=== PATIENT | male | born 1980 | race Caucasian/White ===

== ENCOUNTER 2017-10-29 15:24 | Inpatient (IN) | payer MEDICAID, MEDICARE, OTHER ==
[2017-10-29] VITALS (9 sets, daily range): BP systolic 114–131; BP diastolic 61–82
[~2017-10-29] VITALS: Ht 175.3 cm; Wt 75.3 kg
[2017-10-29] MEDS ORDERED: ONDANSETRON 4 MG/2 ML (SDV) Z0FRAN IVP ONE (16:00)
[2017-10-29 16:09] LABS: ABG BASE EXCESS -16.9 MMOL/L (-2.5-2.5); ABG OXYGEN SATURATION 99 % (94-100); ABG PO2 114 MMHG (79-93); ABG TCO2 9.3 MMOL/L (21.0-31.0)
[2017-10-29] MEDS: NS IV 1000 ML 1,000 ML IV SCH ×2 (16:10→16:46)
[2017-10-29 16:13] LABS: ABG PCO2 19 MMHG (35-45); ABG PH 7.29 (7.37-7.43); ALLENS TEST POSITIVE; INSPIRED O2 ROOM AIR; PATIENT TEMP 98.1; VENTILATOR NO
--- NOTE | 2017-10-29 16:13 | ED General ---
General Chief Complaint: Glucose Problems Stated Complaint: HIGH BLOOD SUGAR Source of Information: Patient Exam Limitations: No Limitations History of Present Illness Date Seen by Provider: Oct 29, 2017 Time Seen by Provider: 15:50 Initial Comments Patient is a 37-year-old male who presents to the emergency room with reports of elevated blood sugars. He was sent over from [facility] for possible DKA. He reports that 2 days ago he ran out of his insulin and this morning he started vomiting. He had an appointment with [facility] and they're the ones that sent him over to the emergency room. They tried to send him by EMS but the patient refused and came pov. He also reports smoking methamphetamines 3 days ago. Timing/Duration: 2-3 Days Associated Systoms: Nausea/Vomiting Allergies and Home Medications Allergies Coded Allergies: No Known Drug Allergies (Unverified , 10/29/17) Home Medications Insulin Aspart 100 Unit/1 Ml Susp, 10 UNIT SQ AC, (Reported) Insulin Aspart 100 Unit/1 Ml Susp, 0 SQ PRN, (Reported) SSI takes 2 units for every 8 units above 160 Insulin Glargine,Hum.rec.anlog 100 Unit/1 Ml Vial, 30 UNIT SQ BID, (Reported) Pregabalin 300 Mg Capsule, 350 MG PO TID, (Reported) Patient Home Medication List Home Medication List Reviewed: Yes Review of Systems Review of Systems Constitutional: see HPI; No chills, No fever; malaise, weakness Gastrointestinal: no symptoms reported, nausea, vomiting Hematologic/Lymphatic: See HPI, Other (hyperglycemia) All Other Systems Reviewed Negative Unless Noted: Yes Past Dxgeriu-Xsvdmi-Nyniuw Hx Past Med/Social Hx: Reviewed Nursing Past Med/Soc Hx Patient Social History Recent Foreign Travel: No Contact w/Someone Who Travel: No Family Medical History Reviewed Nursing Family Hx Physical Exam Vital Signs Vital Signs - First Documented 10/29/17 15:44 Temp 98.9 Pulse 102 Resp 28 B/P (MAP) 128/72 (90) Pulse Ox 97 O2 Delivery Room Air Capillary Refill : Height, Weight, BMI Height: '" Weight: lbs. oz. kg; BMI Method: General Appearance: WD/WN, Mild Distress HEENT: PERRL/EOMI, TMs Normal, Normal ENT Inspection, Pharynx Normal Respiratory: Chest Non Tender, Lungs Clear, Normal Breath Sounds, No Accessory Muscle Use, No Respiratory Distress Cardiovascular: Regular Rate, Rhythm, No Edema, No Gallop, No JVD, No Murmur, Normal Peripheral Pulses, Tachycardia Gastrointestinal: Normal Bowel Sounds, No Organomegaly, No Pulsatile Mass, Non Tender, Soft Neurologic/Psychiatric: Alert, Oriented x3, Normal Mood/Affect Skin: Normal Color, Warm/Dry, Tattoos/Piercings Progress/Results/Core Measures Suspected Sepsis SIRS Temperature: Pulse: Respiratory Rate: Laboratory Tests 10/29/17 16:08: White Blood Count 5.6 Blood Pressure / Mean: Laboratory Tests 10/29/17 16:08: Platelet Count 449H, Total Bilirubin 0.9 10/29/17 18:23: Total Bilirubin 0.5, Creatinine 1.09 10/29/17 19:56: Creatinine 1.03 10/29/17 21:57: Creatinine 0.92 Results/Orders Lab Results Laboratory Tests Test 10/29/17 16:00 10/29/17 16:08 10/29/17 16:14 10/29/17 17:12 Range/Units Blood Gas Puncture Site RIGHT RADIAL Blood Gas Patient Temperature 98.1 Arterial Blood pH 7.29 *L 7.37-7.43 Arterial Blood Partial Pressure CO2 19 *L 35-45 MMHG Arterial Blood Partial Pressure O2 114 H 79-93 MMHG Arterial Blood HCO3 9 *L 23-27 MMOL/L Arterial Blood Total CO2 9.3 L 21.0-31.0 MMOL/L Arterial Blood Oxygen Saturation 99 94-100 % Arterial Blood Base Excess -16.9 L -2.5-2.5 MMOL/L [place] Test POSITIVE Blood Gas Ventilator Setting NO Blood Gas Inspired Oxygen ROOM AIR White Blood Count 5.6 4.3-11.0 10^3/uL Red Blood Count 4.58 4.35-5.85 10^6/uL Hemoglobin 14.7 13.3-17.7 G/DL Hematocrit 40 40-54 % Mean Corpuscular Volume 88 80-99 FL Mean Corpuscular Hemoglobin 32 25-34 PG Mean Corpuscular Hemoglobin Concent 37 H 32-36 G/DL Red Cell Distribution Width 12.4 10.0-14.5 % Platelet Count 449 H 130-400 10^3/uL Mean Platelet Volume 9.4 7.4-10.4 FL Neutrophils (%) (Auto) 67 42-75 % Lymphocytes (%) (Auto) 22 12-44 % Monocytes (%) (Auto) 8 0-12 % Eosinophils (%) (Auto) 1 0-10 % Basophils (%) (Auto) 1 0-10 % Neutrophils # (Auto) 3.7 1.8-7.8 X 10^3 Lymphocytes # (Auto) 1.2 1.0-4.0 X 10^3 Monocytes # (Auto) 0.5 0.0-1.0 X 10^3 Eosinophils # (Auto) 0.1 0.0-0.3 10^3/uL Basophils # (Auto) 0.1 0.0-0.1 10^3/uL Sodium Level 128 L 135-145 MMOL/L Potassium Level 5.6 H 3.6-5.0 MMOL/L Chloride Level 92 L 98-107 MMOL/L Carbon Dioxide Level 8 *L 21-32 MMOL/L Anion Gap 28 H 5-14 MMOL/L Blood Urea Nitrogen 29 H 7-18 MG/DL Creatinine 1.41 H 0.60-1.30 MG/DL Estimat Glomerular Filtration Rate 56 BUN/Creatinine Ratio 21 Glucose Level 786 *H 70-105 MG/DL Calcium Level 9.8 8.5-10.1 MG/DL Corrected Calcium 9.5 8.5-10.1 MG/DL Magnesium Level 2.6 H 1.8-2.4 MG/DL Total Bilirubin 0.9 0.1-1.0 MG/DL Aspartate Amino Transf (AST/SGOT) 29 5-34 U/L Alanine Aminotransferase (ALT/SGPT) 28 0-55 U/L Alkaline Phosphatase 178 H 40-136 U/L Total Protein 7.7 6.4-8.2 GM/DL Albumin 4.4 3.2-4.5 GM/DL Amylase Level 21 L 25-125 U/L Lipase 13 8-78 U/L Urine Color YELLOW Urine Clarity CLEAR Urine pH 5 5-9 Urine Specific [place] 1.015 L 1.016-1.022 Urine Protein 2+ H NEGATIVE Urine Glucose (UA) 4+ H NEGATIVE Urine Ketones 4+ H NEGATIVE Urine Nitrite NEGATIVE NEGATIVE Urine Bilirubin NEGATIVE NEGATIVE Urine Urobilinogen NORMAL NORMAL MG/DL Urine Leukocyte Esterase NEGATIVE NEGATIVE Urine RBC (Auto) 2+ H NEGATIVE Urine RBC 2-5 H /HPF Urine WBC NONE /HPF Urine Squamous Epithelial Cells NONE /HPF Urine Crystals NONE /LPF Urine Bacteria NEGATIVE /HPF Urine Casts NONE /LPF Urine Mucus NEGATIVE /LPF Urine Culture Indicated NO Glucometer > 600 *H 561 *H 70-110 MG/DL Test 10/29/17 18:11 10/29/17 18:23 10/29/17 19:07 10/29/17 19:56 Range/Units Glucometer 401 *H 366 H 70-110 MG/DL Sodium Level 132 L 132 L 135-145 MMOL/L Potassium Level 4.5 4.2 3.6-5.0 MMOL/L Chloride Level 103 102 98-107 MMOL/L Carbon Dioxide Level 11 L 14 L 21-32 MMOL/L Anion Gap 18 H 16 H 5-14 MMOL/L Blood Urea Nitrogen 27 H 24 H 7-18 MG/DL Creatinine 1.09 1.03 0.60-1.30 MG/DL Estimat Glomerular Filtration Rate > 60 > 60 BUN/Creatinine Ratio 25 23 Glucose Level 445 *H 310 H 70-105 MG/DL Calcium Level 8.9 8.4 L 8.5-10.1 MG/DL Corrected Calcium 8.9 8.5-10.1 MG/DL Total Bilirubin 0.5 0.1-1.0 MG/DL Aspartate Amino Transf (AST/SGOT) 25 5-34 U/L Alanine Aminotransferase (ALT/SGPT) 25 0-55 U/L Alkaline Phosphatase 161 H 40-136 U/L Total Protein 6.9 6.4-8.2 GM/DL Albumin 4.0 3.2-4.5 GM/DL Test 10/29/17 20:03 10/29/17 21:12 10/29/17 21:57 10/29/17 22:08 Range/Units Glucometer 281 H 203 H 165 H 70-110 MG/DL Sodium Level 133 L 135-145 MMOL/L Potassium Level 4.1 3.6-5.0 MMOL/L Chloride Level 105 98-107 MMOL/L Carbon Dioxide Level 18 L 21-32 MMOL/L Anion Gap 10 5-14 MMOL/L Blood Urea Nitrogen 22 H 7-18 MG/DL Creatinine 0.92 0.60-1.30 MG/DL Estimat Glomerular Filtration Rate > 60 BUN/Creatinine Ratio 24 Glucose Level 182 H 70-105 MG/DL Calcium Level 8.5 8.5-10.1 MG/DL Test 9/14/18 23:08 10/29/17 23:43 10/30/17 00:46 Range/Units Glucometer 127 H 106 101 70-110 MG/DL My Orders Orders - GUANAKO TORRE Comprehensive Metabolic Panel (10/29/17 15:40) Lipase (10/29/17 15:40) Amylase (10/29/17 15:40) Ua Culture If Indicated (10/29/17 15:40) Saline Lock/Iv-Start (10/29/17 15:40) Cbc With Automated Diff (10/29/17 15:40) Magnesium (10/29/17 15:40) Accucheck Stat ONCE (10/29/17 15:40) Ns Iv 1000 Ml (Sodium Chloride 0.9%) (10/29/17 15:45) Ondansetron Injection (Zofran Injectio (10/29/17 16:00) Arterial Blood Gas (10/29/17 16:01) Ns Iv 1000 Ml (Sodium Chloride 0.9%) (10/29/17 16:15) Hemoglobin A1c (10/29/17 16:38) Insulin (Regular) Human (Humulin R (Per (10/29/17 16:45) Medications Given in ED Current Medications Medications Dose Ordered Sig/Lety Route Start Time Stop Time Status Last Admin Dose Admin Insulin Human Regular 10 unit ONCE ONCE IV 10/29/17 16:45 10/29/17 16:46 DC 10/29/17 16:46 10 UNIT Ondansetron HCl 8 mg ONCE ONCE IVP 10/29/17 16:00 10/29/17 16:01 DC 10/29/17 16:10 8 MG Vital Signs/I&O 10/29/17 10/29/17 10/29/17 10/29/17 15:44 16:55 17:30 17:45 Temp 98.9 Pulse 102 112 109 Resp 28 1 18 B/P (MAP) 128/72 (90) 124/61 (82) 120/74 Pulse Ox 97 97 95 100 O2 Delivery Room Air Room Air Room Air Room Air 10/29/17 10/29/17 10/29/17 10/29/17 17:45 18:00 18:20 18:30 Temp 97.6 Pulse 101 101 98 98 Resp 10 18 16 B/P (MAP) 124/78 (93) 130/79 (96) 120/79 (93) 131/79 (96) Pulse Ox 100 100 99 100 O2 Delivery Room Air Room Air Room Air Room Air 10/29/17 10/29/17 10/29/17 10/29/17 19:00 19:00 20:00 21:00 Pulse 95 95 98 102 Resp 16 10 11 B/P (MAP) 126/82 (97) 119/75 (90) 124/72 (89) Pulse Ox 100 100 99 O2 Delivery Room Air Room Air Room Air 10/29/17 22:00 Pulse 97 Resp 24 B/P (MAP) 114/75 (88) Pulse Ox 98 O2 Delivery Room Air 10/30/17 00:00 Intake Total 1000 ml Balance 1000 ml Capillary Refill : Progress Note : Time: 17:12 Progress Note I have seen and evaluated the patient. He is much more calm at this time. Nausea and vomiting is controlled. Insulin and Zofran has been given. His current blood sugar is 561. I spoke to Dr. Everett at this time. She recommends admission to the ICU to her services. Departure Communication (Admissions) Time/Spoke to Admitting Phy: 17:[address] Everett at this time. She recommends admission to the ICU and agrees to accept the patient at this time. Impression Primary Impression: Diabetic keto-acidosis Disposition: ADMITTED INPATIENT Condition: Stable/Unchanged Admissions Decision to Admit Reason: Admit from ER (General) Decision to Admit/Date: Oct 29, 2017 Time/Decision to Admit Time: 17:10 Departure-Patient Inst. Referrals: [facility] (PCP/Family) Primary Care Physician GUANAKO TORRE Oct 29, 2017 16:13
[2017-10-29] MEDS ORDERED: NS IV 1000 ML 1,000 ML IV SCH (16:15)
[2017-10-29 16:17] LABS: BASOPHILS # (AUTO) 0.1 10^3/uL (0.0-0.1); BASOPHILS % (AUTO) 1 % (0-10); EOSINOPHILS # (AUTO) 0.1 10^3/uL (0.0-0.3); EOSINOPHILS % (AUTO) 1 % (0-10); HEMATOCRIT 40 % (40-54); HEMOGLOBIN 14.7 G/DL (13.3-17.7); LYMPHOCYTES # (AUTO) 1.2 X 10^3 (1.0-4.0); LYMPHOCYTES % (AUTO) 22 % (12-44); MEAN CORPUSCULAR HEMOGLOBIN 32 PG (25-34); MEAN CORPUSCULAR HGB CONC 37 G/DL (32-36); MEAN CORPUSCULAR VOLUME 88 FL (80-99); MEAN PLATELET VOLUME 9.4 FL (7.4-10.4); MONOCYTES # (AUTO) 0.5 X 10^3 (0.0-1.0); MONOCYTES % (AUTO) 8 % (0-12); NEUTROPHILS # (AUTO) 3.7 X 10^3 (1.8-7.8); NEUTROPHILS % (AUTO) 67 % (42-75); PLATELET COUNT 449 10^3/uL (130-400); RED BLOOD COUNT 4.58 10^6/uL (4.35-5.85); RED CELL DISTRIBUTION WIDTH 12.4 % (10.0-14.5); WHITE BLOOD COUNT 5.6 10^3/uL (4.3-11.0)
[2017-10-29 16:35] LABS: ALBUMIN 4.4 GM/DL (3.2-4.5); BILIRUBIN,TOTAL 0.9 MG/DL (0.1-1.0); CALCIUM 9.8 MG/DL (8.5-10.1); CREATININE SERUM 1.41 MG/DL (0.60-1.30); POTASSIUM 5.6 MMOL/L (3.6-5.0); TOTAL PROTEIN 7.7 GM/DL (6.4-8.2)
[2017-10-29] MEDS ORDERED: INSULIN (16:38)
[2017-10-29] MEDS ORDERED: inSUlin (REGULAR) HUMAN 1 UNIT/0.01 ML (CHARGE PER UNIT) IV ONE (16:45)
[2017-10-29 16:53] LABS: BILIRUBIN,URINE NEGATIVE (NEGATIVE); CLARITY,URINE CLEAR; COLOR,URINE YELLOW; GLUCOSE, URINE (UA) 4+ (NEGATIVE); KETONES,URINE 4+ (NEGATIVE); LEUKOCYTE ESTERASE ,URINE NEGATIVE (NEGATIVE); NITRITE,URINE NEGATIVE (NEGATIVE); PH,URINE 5 (5-9); PROTEIN,URINE 2+ (NEGATIVE); UROBILINOGEN,URINE NORMAL (NORMAL)
[2017-10-29 17:15] LABS: BACTERIA,URINE NEGATIVE /HPF
[2017-10-29] MEDS ORDERED: NS IV 1000 ML 1,000 ML IV ONE (17:52)
[2017-10-29] MEDS ORDERED: D5 1/2 NS 1000 ML IV SOLUTION 1,000 ML IV SCH (18:00)
[2017-10-29] MEDS ORDERED: inSUlin REGULAR TPN/DRIP ONLY 250 UNITS in NORMAL SALINE 250 ML IV SCH (18:00)
[2017-10-29] MEDS ORDERED: ONDANSETRON 4 MG/2 ML (SDV) Z0FRAN IV PRN (18:00)
[2017-10-29] MEDS: 1/2 NS IV SOLUTION 1,000 ML IV SCH (18:23)
[2017-10-29] MEDS: 1/2 NS W/KCL 20 MEQ/L 1,000 ML IV SCH (18:24)
[2017-10-29] MEDS: D5 1/2 NS W/KCL 20 MEQ/L 1,000 ML IV SCH ×2 (18:24→20:07)
[2017-10-29 18:50] LABS: ALANINE AMINOTRANSFERASE 25 U/L (0-55); ALKALINE PHOSPHATASE 161 U/L (40-136); BILIRUBIN,TOTAL 0.5 MG/DL (0.1-1.0); BUN/CREATININE RATIO 25; CALCIUM 8.9 MG/DL (8.5-10.1); CARBON DIOXIDE 11 MMOL/L (21-32); CHLORIDE 103 MMOL/L (98-107); CREATININE SERUM 1.09 MG/DL (0.60-1.30); GFR ESTIMATED > 60; POTASSIUM 4.5 MMOL/L (3.6-5.0); SODIUM 132 MMOL/L (135-145); TOTAL PROTEIN 6.9 GM/DL (6.4-8.2)
[2017-10-29 18:57] LABS: GLUCOSE 445 MG/DL (70-105)
[2017-10-29] MEDS ORDERED: PREG300C PO (19:58)
[2017-10-29] MEDS ORDERED: INSU100V16 SQ ×2 (19:58)
[2017-10-29] MEDS ORDERED: INSU100V6 SQ (19:58)
[2017-10-29 20:22] LABS: BUN/CREATININE RATIO 23; CALCIUM 8.4 MG/DL (8.5-10.1); CARBON DIOXIDE 14 MMOL/L (21-32); CREATININE SERUM 1.03 MG/DL (0.60-1.30); GFR ESTIMATED > 60; GLUCOSE 310 MG/DL (70-105)
[2017-10-29 20:28] LABS: CHLORIDE 102 MMOL/L (98-107); POTASSIUM 4.2 MMOL/L (3.6-5.0); SODIUM 132 MMOL/L (135-145)
[2017-10-29 22:22] LABS: BUN/CREATININE RATIO 24; CALCIUM 8.5 MG/DL (8.5-10.1); CARBON DIOXIDE 18 MMOL/L (21-32); CHLORIDE 105 MMOL/L (98-107); CREATININE SERUM 0.92 MG/DL (0.60-1.30); GFR ESTIMATED > 60; GLUCOSE 182 MG/DL (70-105); POTASSIUM 4.1 MMOL/L (3.6-5.0); SODIUM 133 MMOL/L (135-145)
[2017-10-29] MEDS ORDERED: DEXTROSE 10% IV SOLUTION 1,000 ML IV ONE (23:43)
[2017-10-30] VITALS (17 sets, daily range): BP systolic 107–134; BP diastolic 65–78
[2017-10-30] MEDS: 1/2 NS IV SOLUTION 1,000 ML IV SCH ×4 (01:52→10:21)
[2017-10-30] MEDS: 1/2 NS W/KCL 20 MEQ/L 1,000 ML IV SCH ×4 (01:52→10:21)
[2017-10-30 02:19] LABS: BUN/CREATININE RATIO 21; CALCIUM 8.3 MG/DL (8.5-10.1); CARBON DIOXIDE 19 MMOL/L (21-32); CHLORIDE 105 MMOL/L (98-107); CREATININE SERUM 0.85 MG/DL (0.60-1.30); GFR ESTIMATED > 60; GLUCOSE 120 MG/DL (70-105); POTASSIUM 3.7 MMOL/L (3.6-5.0); SODIUM 134 MMOL/L (135-145)
[2017-10-30] MEDS: D5 1/2 NS W/KCL 20 MEQ/L 1,000 ML IV SCH ×3 (04:01→10:21)
[2017-10-30 04:05] LABS: BASOPHILS # (AUTO) 0.1 10^3/uL (0.0-0.1); BASOPHILS % (AUTO) 1 % (0-10); EOSINOPHILS # (AUTO) 0.3 10^3/uL (0.0-0.3); EOSINOPHILS % (AUTO) 4 % (0-10); HEMATOCRIT 36 % (40-54); HEMOGLOBIN 12.9 G/DL (13.3-17.7); LYMPHOCYTES # (AUTO) 2.1 X 10^3 (1.0-4.0); LYMPHOCYTES % (AUTO) 33 % (12-44); MEAN CORPUSCULAR HEMOGLOBIN 32 PG (25-34); MEAN CORPUSCULAR HGB CONC 36 G/DL (32-36); MEAN CORPUSCULAR VOLUME 88 FL (80-99); MEAN PLATELET VOLUME 8.7 FL (7.4-10.4); MONOCYTES # (AUTO) 0.6 X 10^3 (0.0-1.0); MONOCYTES % (AUTO) 9 % (0-12); NEUTROPHILS # (AUTO) 3.5 X 10^3 (1.8-7.8); NEUTROPHILS % (AUTO) 53 % (42-75); PLATELET COUNT 415 10^3/uL (130-400); RED BLOOD COUNT 4.07 10^6/uL (4.35-5.85); RED CELL DISTRIBUTION WIDTH 12.8 % (10.0-14.5); WHITE BLOOD COUNT 6.5 10^3/uL (4.3-11.0)
[2017-10-30 04:31] LABS: ALANINE AMINOTRANSFERASE 21 U/L (0-55); ALBUMIN 3.4 GM/DL (3.2-4.5); ALKALINE PHOSPHATASE 132 U/L (40-136); BILIRUBIN,TOTAL 0.4 MG/DL (0.1-1.0); BUN/CREATININE RATIO 20; CALCIUM 8.3 MG/DL (8.5-10.1); CARBON DIOXIDE 17 MMOL/L (21-32); CHLORIDE 103 MMOL/L (98-107); CREATININE SERUM 0.84 MG/DL (0.60-1.30); GFR ESTIMATED > 60; GLUCOSE 190 MG/DL (70-105); POTASSIUM 3.8 MMOL/L (3.6-5.0); SODIUM 131 MMOL/L (135-145); TOTAL PROTEIN 5.8 GM/DL (6.4-8.2)
[2017-10-30 04:54] LABS: MAGNESIUM 2.3 MG/DL (1.8-2.4); PHOSPHORUS 3.8 MG/DL (2.3-4.7)
[2017-10-30] MEDS ORDERED: MAGNESIUM 1 GM/100 ML IVPB 100 ML IV SCH (06:00)
[2017-10-30] MEDS ORDERED: KCL 20 MEQ TAB (K-DUR) PO SCH (06:00)
[2017-10-30] MEDS ORDERED: POTASSIUM CL 10MEQ/50ML IVPB 50 ML IV SCH (06:00)
[2017-10-30] MEDS: inSUlin DETERMIR 1 UNIT/0.01 ML (LEVEMIR) CHARGE PER UNIT SQ SCH ×2 (07:32→21:39)
[2017-10-30] MEDS: inSUlin ASPART (NovoLOG) 1 UNIT/0.01 ML (CHARGE PER UNIT) SC SCH ×5 (08:30→20:03)
[2017-10-30] MEDS ORDERED: inSUlin ASPART (NovoLOG) 1 UNIT/0.01 ML (CHARGE PER UNIT) SC PRN (08:30)
[2017-10-30] MEDS ORDERED: PREGABALIN PO SCH (09:00)
[2017-10-30] MEDS ORDERED: inSUlin ASPART (NovoLOG) 1 UNIT/0.01 ML (CHARGE PER UNIT) SQ SCH (09:30)
[2017-10-30 10:05] LABS: BUN/CREATININE RATIO 17; CALCIUM 8.3 MG/DL (8.5-10.1); CARBON DIOXIDE 17 MMOL/L (21-32); CHLORIDE 104 MMOL/L (98-107); CREATININE SERUM 0.88 MG/DL (0.60-1.30); GFR ESTIMATED > 60; GLUCOSE 221 MG/DL (70-105); POTASSIUM 3.7 MMOL/L (3.6-5.0); SODIUM 132 MMOL/L (135-145)
[2017-10-30] MEDS ORDERED: INSULIN VIAL ASPART for PUMP 100 UNIT/ML VIAL SQ SCH (11:00)
--- NOTE | 2017-10-30 14:28 | History & Physicial (CHS) ---
HPI History of Present Illness: This is a 37 yo male patient with history of DM Type 1 since 7 years of age. Pt has previously seen Dr. Maki in [place] as his PCP but has moved to [place] and has not yet established with a PCP. Pt reports he ran out of insulin 2 days ago. He developed n/v/abdominal pain and suspected he was going into DKA. He was seen at the [facility] and referred to the ER for suspected DKA as he had a BS too high to read w/ symptoms of DKA. Pt was admitted to the ICU on insulin drip and reports feeling significantly improved this am. Pt reports last A1c was 8.8. He has complications of retinopathy and neuropathy. Pt has hx of meth use but states he has not used regularly for the past 10 years. He does admit to smoking meth 5 days ago, but reports "it isn't for me". Source: patient Exam Limitations: no limitations Date seen by provider: Oct 30, 2017 Time Seen by Provider: 07:30 Attending Physician Peyton Dixon DO [facility] Date of Admission Oct 29, 2017 at 17:11 Home Medications Home Medications Reviewed patient Home Medication Reconciliation performed by pharmacy medication reconciliations wafer fab technician and/or nursing. Patients Allergies have been reviewed. Allergies Coded Allergies: No Known Drug Allergies (Unverified , 10/29/17) EFH-Zwhvho-Isylyj Hx Patient Social History Alcohol Use: Denies Use Recreational Drug Use: Yes (meth use) Smoking Status: Current Everyday Smoker Type Used: Cigarettes Recent Foreign Travel: No Contact w/other who traveled: No Recent Hopitalizations: No (MRSA in right knee) Recent Infectious Disease Expo: No Physical Abuse Screen: No Sexual Abuse: No Past Medical History DM Type 1 - Dx 1987 (age 7) Diabetic Retinopathy Diabetic Neuropathy reports heart murmur Meth use hx MRSA Migraine SALEH PSH: R elbow fracture repair R elbow MRSA R knee surgeries x9 (2 arthroscopic, other surgies for MRSA) Review of Systems ([facility]) Constitutional: see HPI Reviewed Test Results Reviewed Test Results Lab Laboratory Tests 10/29/17 16:00: Blood Gas Puncture Site RIGHT RADIAL, Blood Gas Patient Temperature 98.1, Arterial Blood pH 7.29*L, Arterial Blood Partial Pressure CO2 19*L, Arterial Blood Partial Pressure O2 114H, Arterial Blood HCO3 9*L, Arterial Blood Total CO2 9.3L, Arterial Blood Oxygen Saturation 99, Arterial Blood Base Excess -16.9L , [place] Test POSITIVE, Blood Gas Ventilator Setting NO, Blood Gas Inspired Oxygen ROOM AIR 10/29/17 16:08: White Blood Count 5.6, Red Blood Count 4.58, Hemoglobin 14.7, Hematocrit 40, Mean Corpuscular Volume 88, Mean Corpuscular Hemoglobin 32, Mean Corpuscular Hemoglobin Concent 37H, Red Cell Distribution Width 12.4, Platelet Count 449H, Mean Platelet Volume 9.4, Neutrophils (%) (Auto) 67, Lymphocytes (%) (Auto) 22, Monocytes (%) (Auto) 8, Eosinophils (%) (Auto) 1, Basophils (%) (Auto) 1, Neutrophils # (Auto) 3.7, Lymphocytes # (Auto) 1.2, Monocytes # (Auto) 0.5, Eosinophils # (Auto) 0.1, Basophils # (Auto) 0.1, Sodium Level 128L, Potassium Level 5.6H, Chloride Level 92L, Carbon Dioxide Level 8*L, Anion Gap 28H, Blood Urea Nitrogen 29H, Creatinine 1.41H, Estimat Glomerular Filtration Rate 56, BUN/ Creatinine Ratio 21, Glucose Level 786*H, Calcium Level 9.8, Corrected Calcium 9.5, Magnesium Level 2.6H, Total Bilirubin 0.9, Aspartate Amino Transf (AST/SGOT ) 29, Alanine Aminotransferase (ALT/SGPT) 28, Alkaline Phosphatase 178H, Total Protein 7.7, Albumin 4.4, Amylase Level 21L, Lipase 13 10/29/17 16:14: Urine Color YELLOW, Urine Clarity CLEAR, Urine pH 5, Urine Specific [place] 1.015L, Urine Protein 2+H, Urine Glucose (UA) 4+H, Urine Ketones 4+H, Urine Nitrite NEGATIVE, Urine Bilirubin NEGATIVE, Urine Urobilinogen NORMAL, Urine Leukocyte Esterase NEGATIVE, Urine RBC (Auto) 2+H, Urine RBC 2-5H, Urine WBC NONE, Urine Squamous Epithelial Cells NONE, Urine Crystals NONE, Urine Bacteria NEGATIVE, Urine Casts NONE, Urine Mucus NEGATIVE, Urine Culture Indicated NO, Glucometer > 600*H 10/29/17 17:12: Glucometer 561*H 10/29/17 18:11: Glucometer 401*H 10/29/17 18:23: Sodium Level 132L, Potassium Level 4.5, Chloride Level 103, Carbon Dioxide Level 11L, Anion Gap 18H, Blood Urea Nitrogen 27H, Creatinine 1.09, Estimat Glomerular Filtration Rate > 60, BUN/Creatinine Ratio 25, Glucose Level 445*H, Calcium Level 8.9, Corrected Calcium 8.9, Total Bilirubin 0.5, Aspartate Amino Transf (AST/SGOT) 25, Alanine Aminotransferase (ALT/SGPT) 25, Alkaline Phosphatase 161H, Total Protein 6.9, Albumin 4.0 10/29/17 19:07: Glucometer 366H 10/29/17 19:56: Sodium Level 132L, Potassium Level 4.2, Chloride Level 102, Carbon Dioxide Level 14L, Anion Gap 16H, Blood Urea Nitrogen 24H, Creatinine 1.03, Estimat Glomerular Filtration Rate > 60, BUN/Creatinine Ratio 23, Glucose Level 310H, Calcium Level 8.4L 10/29/17 20:03: Glucometer 281H 10/29/17 21:12: Glucometer 203H 10/29/17 21:57: Sodium Level 133L, Potassium Level 4.1, Chloride Level 105, Carbon Dioxide Level 18L, Anion Gap 10, Blood Urea Nitrogen 22H, Creatinine 0.92, Estimat Glomerular Filtration Rate > 60, BUN/Creatinine Ratio 24, Glucose Level 182H, Calcium Level 8.5 10/29/17 22:08: Glucometer 165H 10/29/17 23:08: Glucometer 127H 10/29/17 23:43: Glucometer 106 10/30/17 00:46: Glucometer 101 10/30/17 01:19: Glucometer 97 10/30/17 01:52: Sodium Level 134L, Potassium Level 3.7, Chloride Level 105, Carbon Dioxide Level 19L, Anion Gap 10, Blood Urea Nitrogen 18, Creatinine 0.85, Estimat Glomerular Filtration Rate > 60, BUN/Creatinine Ratio 21, Glucose Level 120H, Calcium Level 8.3L 10/30/17 02:15: Glucometer 142H 10/30/17 02:49: Glucometer 129H 10/30/17 03:35: Phosphorus Level 3.8, Magnesium Level 2.3 10/30/17 03:53: White Blood Count 6.5, Red Blood Count 4.07L, Hemoglobin 12.9L, Hematocrit 36L, Mean Corpuscular Volume 88, Mean Corpuscular Hemoglobin 32, Mean Corpuscular Hemoglobin Concent 36, Red Cell Distribution Width 12.8, Platelet Count 415H, Mean Platelet Volume 8.7, Neutrophils (%) (Auto) 53, Lymphocytes (%) (Auto) 33, Monocytes (%) (Auto) 9, Eosinophils (%) (Auto) 4, Basophils (%) (Auto) 1, Neutrophils # (Auto) 3.5, Lymphocytes # (Auto) 2.1, Monocytes # (Auto) 0.6, Eosinophils # (Auto) 0.3, Basophils # (Auto) 0.1, Sodium Level 131L, Potassium Level 3.8, Chloride Level 103, Carbon Dioxide Level 17L, Anion Gap 11, Blood Urea Nitrogen 17, Creatinine 0.84, Estimat Glomerular Filtration Rate > 60, BUN/ Creatinine Ratio 20, Glucose Level 190H, Calcium Level 8.3L, Corrected Calcium 8.8, Total Bilirubin 0.4, Aspartate Amino Transf (AST/SGOT) 19, Alanine Aminotransferase (ALT/SGPT) 21, Alkaline Phosphatase 132, Total Protein 5.8L, Albumin 3.4 10/30/17 03:57: Glucometer 179H 10/30/17 05:09: Glucometer 132H 10/30/17 05:45: Glucometer 215H 10/30/17 06:46: Glucometer 208H 10/30/17 07:48: Glucometer 141H 10/30/17 08:18: Glucometer 160H 10/30/17 09:42: Sodium Level 132L, Potassium Level 3.7, Chloride Level 104, Carbon Dioxide Level 17L, Anion Gap 11, Blood Urea Nitrogen 15, Creatinine 0.88, Estimat Glomerular Filtration Rate > 60, BUN/Creatinine Ratio 17, Glucose Level 221H, Calcium Level 8.3L 10/30/17 10:41: Glucometer 156H Physical Exam-([facility]) Physical Exam Vital Signs VS - Last 72 Hours, by Label 10/29/17 10/29/17 10/29/17 10/29/17 15:44 16:55 17:30 17:45 Temp 98.9 Pulse 102 112 109 Resp 28 1 18 B/P (MAP) 128/72 (90) 124/61 (82) 120/74 Pulse Ox 97 97 95 100 O2 Delivery Room Air Room Air Room Air Room Air 10/29/17 10/29/17 10/29/17 10/29/17 17:45 18:00 18:20 18:30 Temp 97.6 Pulse 101 101 98 98 Resp 10 18 16 B/P (MAP) 124/78 (93) 130/79 (96) 120/79 (93) 131/79 (96) Pulse Ox 100 100 99 100 O2 Delivery Room Air Room Air Room Air Room Air 10/29/17 10/29/17 10/29/17 10/29/17 19:00 19:00 20:00 20:00 Pulse 95 95 98 Resp 16 10 B/P (MAP) 126/82 (97) 119/75 (90) Pulse Ox 100 98 100 O2 Delivery Room Air Room Air Room Air 10/29/17 10/29/17 10/29/17 10/30/17 20:00 21:00 22:00 00:00 Temp 97.8 Pulse 102 97 Resp 11 24 B/P (MAP) 124/72 (89) 114/75 (88) Pulse Ox 99 98 98 O2 Delivery Room Air Room Air Room Air 10/30/17 10/30/17 10/30/17 10/30/17 00:00 01:00 01:00 02:00 Temp 98.3 Pulse 89 80 86 Resp 29 13 B/P (MAP) 107/65 (79) 118/76 (90) Pulse Ox 98 100 O2 Delivery Room Air Room Air 10/30/17 10/30/17 10/30/17 10/30/17 03:00 04:00 04:00 04:00 Temp 98.2 Pulse 82 86 Resp 18 19 B/P (MAP) 134/75 (94) 119/70 (86) Pulse Ox 99 98 100 O2 Delivery Room Air Room Air Room Air 10/30/17 10/30/17 10/30/17 10/30/17 05:00 06:00 07:00 07:00 Pulse 79 80 80 80 Resp 56 12 17 B/P (MAP) 115/65 (82) 122/66 (84) 119/74 (89) Pulse Ox 99 99 100 O2 Delivery Room Air Room Air Room Air 10/30/17 10/30/17 10/30/17 10/30/17 08:00 08:00 08:30 09:00 Temp 98.4 Pulse 79 90 Resp 16 15 B/P (MAP) 130/76 (94) 132/75 (94) Pulse Ox 99 100 98 O2 Delivery Room Air Room Air Room Air Room Air 10/30/17 10/30/17 10/30/17 10/30/17 10:00 11:00 12:00 12:20 Pulse 89 84 82 Resp 15 26 16 B/P (MAP) 126/78 (94) 121/69 (86) 117/73 (88) Pulse Ox 100 99 99 100 O2 Delivery Room Air Room Air Room Air Room Air 10/30/17 13:00 Pulse 82 Capillary Refill : Less Than 3 Seconds General Appearance: WD/WN, no apparent distress HEENT: PERRL/EOMI Respiratory: lungs clear, normal breath sounds, no respiratory distress, no accessory muscle use Cardiovascular: regular rate, rhythm Gastrointestinal: non tender, soft Neurologic/Psychiatric: alert, normal mood/affect, oriented x 3 Skin: normal color, warm/dry Assessment/Plan Assessment/Plan Admission Dx 1. DKA 2. DM Type 1 Admission Status: Inpatient Order (span 2 midnights) Reason for Inpatient Admission: ICU admission for IV insulin drip to correct DKA Assessment & Plan 1. DKA - admitted to ICU on insulin drip DKA protocol - initial pH was 7.29; am labs show CO2 17, AG 11; BS improved to <200 - will resume home dose of Lantus/Levemir 30 units BID and Novolog 10 units w/ meals 2. DM Type 1 - complicated by retinopathy and neuropathy - will need to establish care at [facility] on DC 3. Methamphetamine use - hx of regular use in the past, last used 5 days ago - discussed [facility] ATS services 4. Migraine SALEH - reports using Fioricet almost daily for SALEH - recommend evaluation for migraine prophylaxis as OP; do no recommend continued use of Fioricet. Disp: Anticipate DC home tomorrow if able to tolerate po intake and sq insulin Clinical Quality Measures DVT/VTE Risk/Contraindication: Risk Factor Score Per Nursin RFS Level Per Nursing on Admit: 1=Low/No VTE PPX PEYTON DIXON DO Oct 30, 2017 14:27
[2017-10-31 04:00] VITALS: BP 128/72
[2017-10-31 05:53] LABS: BUN/CREATININE RATIO 22; CALCIUM 8.5 MG/DL (8.5-10.1); CARBON DIOXIDE 20 MMOL/L (21-32); CHLORIDE 105 MMOL/L (98-107); CREATININE SERUM 0.76 MG/DL (0.60-1.30); GFR ESTIMATED > 60; POTASSIUM 3.8 MMOL/L (3.6-5.0); SODIUM 135 MMOL/L (135-145)
[2017-10-31 06:12] LABS: GLUCOSE 192 MG/DL (70-105)
[2017-10-31] MEDS: inSUlin ASPART (NovoLOG) 1 UNIT/0.01 ML (CHARGE PER UNIT) SC SCH ×5 (06:50→14:20)
[2017-10-31 07:28] VITALS: BP 132/70
[2017-10-31] MEDS: inSUlin DETERMIR 1 UNIT/0.01 ML (LEVEMIR) CHARGE PER UNIT SQ SCH (08:25)
[2017-10-31 11:12] VITALS: BP 115/58
[2017-10-31] MEDS ORDERED: INSU100I14 SQ (11:25)
[2017-10-31] MEDS ORDERED: INSU100I10 SQ (11:25)
--- NOTE | 2017-10-31 11:29 | Discharge Instructions ---
Discharge Inst-[facility] Discharge Medications New, Converted or Re-Newed RX: Transmitted to Pharmacy ([facility]) New Medications: Insulin Aspart (Novolog Flexpen) 300 Units/3 Ml Solution 10 UNITS SQ AC, #1 EA 0 Refills Insulin Glargine,Hum.rec.anlog (Lantus Solostar) 100 Unit/1 Ml Insuln.pen 30 UNIT SQ BID, #1 EACH 0 Refills Continued Medications: Insulin Aspart (Novolog) 100 Unit/1 Ml Susp 0 SQ PRN, EACH SSI takes 2 units for every 8 units above 160 Pregabalin (Lyrica) 300 Mg Capsule 350 MG PO TID, CAP Patient Instructions Patient Instructions Go to [facility] after discharged from the hospital to picker insulin samples until you are able to get insulin prescriptions filled at [facility] ( [facility]) on Wednesday. Goal/Follow Up Appt: Follow-up to establish care with ALYCE Madera at [facility] on Wed11/03/17 at 11 am. Please arrive 15 minutes early to complete paperwork. Activity & Diet Discharge Diet: ADA Diet Orders-Post D/C & Referrals Pneu Vac Indicated: Yes PEYTON DIXON DO Oct 31, 2017 11:29
--- NOTE | 2017-10-31 13:33 | Discharge Summary ---
Diagnosis/Chief Complaint Date of Admission Oct 29, 2017 at 17:11 Date of Discharge Admission Diagnosis Admission Diagnosis 1. DKA 2. DM Type 1 Discharge Diagnosis 1. DKA - admitted to ICU on insulin drip DKA protocol - initial pH was 7.29; am labs show CO2 17, AG 11; BS improved to <200 - will resume home dose of Lantus/Levemir 30 units BID and Novolog 10 units w/ meals RESOLVED 2. DM Type 1 - complicated by retinopathy and neuropathy - will need to establish care at [facility] on DC 10/31 - BS stable on home dose of insulin; Est Care appointment scheduled at [facility] 3. Methamphetamine use - hx of regular use in the past, last used 5 days ago - discussed [facility] services 4. Migraine SALEH - reports using Fioricet almost daily for SALEH - recommend evaluation for migraine prophylaxis as OP; do no recommend continued use of Fioricet. Disp: 10/31 - DC home today; sample of insulin available for flower buncher or picker today at [facility] until he can flower buncher or picker prescription at [facility] tomorrow. Chief Complaint/HPI Chief Complaint/HPI This is a 37 yo male patient with history of DM Type 1 since 7 years of age. Pt has previously seen Dr. Maki in [place] as his PCP but has moved to [place] and has not yet established with a PCP. Pt reports he ran out of insulin 2 days ago. He developed n/v/abdominal pain and suspected he was going into DKA. He was seen at the [facility] and referred to the ER for suspected DKA as he had a BS too high to read w/ symptoms of DKA. Pt was admitted to the ICU on insulin drip and reports feeling significantly improved this am. Pt reports last A1c was 8.8. He has complications of retinopathy and neuropathy. Pt has hx of meth use but states he has not used regularly for the past 10 years. He does admit to smoking meth 5 days ago, but reports "it isn't for me". Discharge Summary-Simple/Stand Consultations Discharge Physical Examination Allergies: Coded Allergies: No Known Drug Allergies (Unverified , 10/29/17) Vitals & I&Os Vital Sign - Last 12Hours Date Time Temp Pulse Resp B/P (MAP) Pulse Ox O2 Delivery O2 Flow Rate FiO2 10/31/17 11:12 96.4 82 20 115/58 (77) 97 Room Air Intake and Output 10/31/17 00:00 Intake Total 2220 ml Output Total 2 ml Balance 2218 ml General Appearance: Alert, Oriented X3, Cooperative Psych/Mental Status: Mood NL Hospital Course See final discharge diagnosis. Discussion & Recommendations Discharge [facility] Discharge Medications New, Converted or Re-Newed RX: Transmitted to Pharmacy ([facility]) New Medications: Insulin Aspart (Novolog Flexpen) 300 Units/3 Ml Solution 10 UNITS SQ AC, #1 EA 0 Refills Insulin Glargine,Hum.rec.anlog (Lantus Solostar) 100 Unit/1 Ml Insuln.pen 30 UNIT SQ BID, #1 EACH 0 Refills Continued Medications: Insulin Aspart (Novolog) 100 Unit/1 Ml Susp 0 SQ PRN, EACH SSI takes 2 units for every 8 units above 160 Pregabalin (Lyrica) 300 Mg Capsule 350 MG PO TID, CAP Patient Instructions Patient Instructions Go to [facility] after discharged from the hospital to flower buncher or picker insulin samples until you are able to get insulin prescriptions filled at [facility] ( [facility]) on Wednesday. Goal/Follow Up Appt: Follow-up to establish care with ALYCE Madera at [facility] on Wed11/03/17 at 11 am. Please arrive 15 minutes early to complete paperwork. Activity & Diet Discharge Diet: ADA Diet Orders-Post D/C & Referrals Pneu Vac Indicated: Yes Discharge Instructions to patient/family Please see electronic discharge instructions given to patient. Discharge Medications Reviewed and agree with Discharge Medication list on patient's Discharge Instruction sheet Clinical Quality Measures DVT/VTE Risk/Contraindication: Risk Factor Score Per Nursin RFS Level Per Nursing on Admit: 1=Low/No VTE PPX PEYTON DIXON DO Oct 31, 2017 13:33
== END 2017-10-31 14:45 | disposition home or self-care (01) | DRG 639 ==
LOC: ER 15:26 → ICU 17:11 → 4TH 10-30 15:20
PROVIDERS: ADMIT Family Medicine; ATTEND Family Medicine
DX: E10.10 Type 1 diabetes mellitus with ketoacidosis without coma (principal); E10.319 Type 1 diabetes mellitus with unspecified diabetic retinopathy without macular edema; E10.40 Type 1 diabetes mellitus with diabetic neuropathy, unspecified; F15.90 Other stimulant use, unspecified, uncomplicated; G43.909 Migraine, unspecified, not intractable, without status migrainosus; F17.210 Nicotine dependence, cigarettes, uncomplicated; Z79.4 Long term (current) use of insulin; Z86.14 Personal history of Methicillin resistant Staphylococcus aureus infection
CPT/HCPCS: 36415; 80048; 80053; 81000; 82150; 82805; 82962; 83036; 83690; 83735; 84100; 85025; 87081; 96361; 96374; 96375

== ENCOUNTER 2017-11-29 13:49 | Inpatient (IN) | payer MEDICARE, MEDICAID ==
[2017-11-29] VITALS (7 sets, daily range): BP systolic 102–124; BP diastolic 59–78
[~2017-11-29] VITALS: Ht 175.3 cm; Wt 77.1 kg
[~2017-11-29 13:49] MED LIST: INSU100I10 SQ; INSU100I14 SQ; INSU100V16 SQ; INSU100V6 SQ; INSULIN; PREG300C PO
[2017-11-29] MEDS ORDERED: ONDANSETRON 4 MG/2 ML (SDV) Z0FRAN IVP ONE (14:15)
[2017-11-29] MEDS ORDERED: NS IV 1000 ML 1,000 ML IV SCH ×2 (14:15→17:29)
[2017-11-29] MEDS ORDERED: inSUlin (REGULAR) HUMAN 1 UNIT/0.01 ML (CHARGE PER UNIT) IV ONE (14:15)
[2017-11-29 14:24] LABS: BASOPHILS # (AUTO) 0.1 10^3/uL (0.0-0.1); BASOPHILS % (AUTO) 1 % (0-10); EOSINOPHILS % (AUTO) 0 % (0-10); HEMATOCRIT 38 % (40-54); HEMOGLOBIN 13.9 G/DL (13.3-17.7); LYMPHOCYTES # (AUTO) 1.5 X 10^3 (1.0-4.0); LYMPHOCYTES % (AUTO) 11 % (12-44); MEAN CORPUSCULAR HEMOGLOBIN 33 PG (25-34); MEAN CORPUSCULAR HGB CONC 36 G/DL (32-36); MEAN CORPUSCULAR VOLUME 90 FL (80-99); MEAN PLATELET VOLUME 9.6 FL (7.4-10.4); MONOCYTES % (AUTO) 8 % (0-12); NEUTROPHILS # (AUTO) 10.1 X 10^3 (1.8-7.8); NEUTROPHILS % (AUTO) 80 % (42-75); PLATELET COUNT 465 10^3/uL (130-400); RED BLOOD COUNT 4.27 10^6/uL (4.35-5.85); RED CELL DISTRIBUTION WIDTH 12.3 % (10.0-14.5); WHITE BLOOD COUNT 12.7 10^3/uL (4.3-11.0)
--- OUTSIDE RECORDS SUMMARY | 2017-11-29 14:31 | XMS REPORT ---
Author Author MARVEL PORTILLO Organization [facility] Address [address] [place] [address] Care Team Providers Care Recyclable Materials Sorter Name Role Phone MARVEL PORTILLO Unavailable PROBLEMS Type Condition ICD9-CM Code [id number] Code Onset Dates Condition Status SNOMED Code Problem Diabetic ketoacidosis without coma associated with type 1 diabetes mellitus E10.10 Active [id number] ALLERGIES No Known Allergies ENCOUNTERS Encounter Location Date Diagnosis [facility] [address] [facility] [id number] [place] [address] Oct, Diabetic ketoacidosis without coma associated with type 1 diabetes mellitus E10.10 IMMUNIZATIONS No Known Immunizations SOCIAL HISTORY Never Assessed REASON FOR VISIT Pt states he sees Talia Maki in [place], is a type I DM. Has been out of insulin today. Is currently experiencing nausea and sob SHANNONtraYossi PLAN OF CARE Activity Details Follow Up to ER Reason:Diabetic Ketoacidosis VITAL SIGNS Temperature 97.1 degrees Fahrenheit 2017-10-29 Heart Rate 120 bpm 2017-10-29 Respiratory Rate 28 2017-10-29 Oximetry 96 % 2017-10-29 Blood pressure systolic 102 mmHg 2017-10-29 Blood pressure diastolic 74 mmHg 2017-10-29 MEDICATIONS Unknown Medications RESULTS No Results PROCEDURES Procedure Date Ordered Result Body Site [facility] VISIT NEW PATIENT Oct 29, 2017 INSTRUCTIONS MEDICATIONS ADMINISTERED No Known Medications MEDICAL (GENERAL) HISTORY Type Description Date Medical History MRSA 2017 Surgical History No know Surgical history
[2017-11-29 14:40] LABS: ALBUMIN 3.9 GM/DL (3.2-4.5); BILIRUBIN,TOTAL 1.3 MG/DL (0.1-1.0); CALCIUM 9.6 MG/DL (8.5-10.1); CREATININE SERUM 1.5 MG/DL (0.60-1.30); TOTAL PROTEIN 7.7 GM/DL (6.4-8.2)
--- NOTE | 2017-11-29 14:57 | ED General ---
General Chief Complaint: Glucose Problems Stated Complaint: ELEV BLOOD SUGAR VOMITING Source of Information: Patient Exam Limitations: No Limitations History of Present Illness Date Seen by Provider: Nov 29, 2017 Time Seen by Provider: 14:10 Initial Comments Patient is a 37-year-old male who presents to the emergency room with complaints of elevated blood sugar and nausea and vomiting. Patient is a type I diabetic who reports running out of his insulin dose 3 days ago. He has history of DKA and was recently admitted to the hospital on October 29, 2017 for diabetic ketoacidosis. His presentation is very similar this visit. He is unsure of the names of the insulins that he takes but reports he takes a short and long acting insulin. Timing/Duration: 2-3 Days Associated Systoms: Nausea/Vomiting Allergies and Home Medications Allergies Coded Allergies: No Known Drug Allergies (Unverified , 10/29/17) Home Medications Insulin Aspart 100 Unit/1 Ml Susp, 0 SQ PRN, (Reported) SSI takes 2 units for every 8 units above 160 Insulin Aspart 300 Units/3 Ml Solution, 10 UNITS SQ AC Prescribed by: PEYTON DIXON on 10/31/17 1125 Insulin Glargine,Hum.rec.anlog 100 Unit/1 Ml Insuln.pen, 30 UNIT SQ BID Prescribed by: PEYTON DIXON on 10/31/17 1125 Pregabalin 300 Mg Capsule, 350 MG PO TID, (Reported) Patient Home Medication List Home Medication List Reviewed: Yes Review of Systems Review of Systems Constitutional: see HPI; No chills, No fever Gastrointestinal: see HPI, nausea, vomiting Elevated blood sugars. All Other Systems Reviewed Negative Unless Noted: Yes Past Glhcjod-Zevvwg-Iptrjb Hx Past Med/Social Hx: Reviewed Nursing Past Med/Soc Hx Patient Social History Type Used: Cigarettes Recent Foreign Travel: No Contact w/Someone Who Travel: No Recent Hopitalizations: No (MRSA in right knee) Seasonal Allergies Seasonal Allergies: No Past Medical History Surgeries: Yes (9 surgeries to right knee, right elbow and hand surgeries) Orthopedic Respiratory: No Cardiac: No Neurological: Yes Genitourinary: No Gastrointestinal: No Musculoskeletal: No Endocrine: Yes (Type I DM) Diabetes, Insulin dep HEENT: No Cancer: No Psychosocial: No Integumentary: No Blood Disorders: No Family Medical History Reviewed Nursing Family Hx Physical Exam Vital Signs Vital Signs - First Documented 11/29/17 14:00 Temp 98.0 Pulse 118 Resp 23 B/P (MAP) 134/87 (103) Pulse Ox 100 O2 Delivery Room Air Capillary Refill : Height, Weight, BMI Height: 5'9.00" Weight: 166lbs. 2.0oz. [id number]; 22.5 BMI Method:Stated General Appearance: No Apparent Distress, WD/WN Eyes: Bilateral Eye Normal Inspection, Bilateral Eye PERRL, Bilateral Eye EOMI HEENT: PERRL/EOMI, TMs Normal, Normal ENT Inspection, Pharynx Normal Neck: Full Range of Motion, Normal Inspection, Non Tender, Supple, Carotid Bruit Respiratory: Chest Non Tender, Lungs Clear, Normal Breath Sounds, No Accessory Muscle Use, No Respiratory Distress Cardiovascular: Regular Rate, Rhythm, No Edema, No Gallop, No JVD, No Murmur, Normal Peripheral Pulses Gastrointestinal: Normal Bowel Sounds, No Organomegaly, No Pulsatile Mass, Non Tender, Soft Extremity: Normal Capillary Refill Neurologic/Psychiatric: Alert, Oriented x3, Normal Mood/Affect Skin: Normal Color, Warm/Dry, Tattoos/Piercings Progress/Results/Core Measures Suspected Sepsis SIRS Temperature: Pulse: Respiratory Rate: Laboratory Tests 11/29/17 14:12: White Blood Count 12.7H 11/29/17 17:30: White Blood Count 11.9H Blood Pressure / Mean: Laboratory Tests 11/29/17 14:12: Platelet Count 465H, Total Bilirubin 1.3H 11/29/17 17:30: Platelet Count 358, Creatinine 1.17 11/29/17 19:05: Creatinine 1.28 11/29/17 22:55: Results/Orders Lab Results Laboratory Tests Test 11/29/17 14:11 11/29/17 14:12 11/29/17 15:20 11/29/17 16:39 Range/Units Glucometer > 600 *H 443 *H 70-110 MG/DL White Blood Count 12.7 H 4.3-11.0 10^3/uL Red Blood Count 4.27 L 4.35-5.85 10^6/uL Hemoglobin 13.9 13.3-17.7 G/DL Hematocrit 38 L 40-54 % Mean Corpuscular Volume 90 80-99 FL Mean Corpuscular Hemoglobin 33 25-34 PG Mean Corpuscular Hemoglobin Concent 36 32-36 G/DL Red Cell Distribution Width 12.3 10.0-14.5 % Platelet Count 465 H 130-400 10^3/uL Mean Platelet Volume 9.6 7.4-10.4 FL Neutrophils (%) (Auto) 80 H 42-75 % Lymphocytes (%) (Auto) 11 L 12-44 % Monocytes (%) (Auto) 8 0-12 % Eosinophils (%) (Auto) 0 0-10 % Basophils (%) (Auto) 1 0-10 % Neutrophils # (Auto) 10.1 H 1.8-7.8 X 10^3 Lymphocytes # (Auto) 1.5 1.0-4.0 X 10^3 Monocytes # (Auto) 1.0 0.0-1.0 X 10^3 Eosinophils # (Auto) 0.0 0.0-0.3 10^3/uL Basophils # (Auto) 0.1 0.0-0.1 10^3/uL Sodium Level 130 L 135-145 MMOL/L Potassium Level 6.0 H 3.6-5.0 MMOL/L Chloride Level 92 L 98-107 MMOL/L Carbon Dioxide Level 9 *L 21-32 MMOL/L Anion Gap 29 H 5-14 MMOL/L Blood Urea Nitrogen 19 H 7-18 MG/DL Creatinine 1.50 H 0.60-1.30 MG/DL Estimat Glomerular Filtration Rate 52 BUN/Creatinine Ratio 13 Glucose Level 776 *H 70-105 MG/DL Calcium Level 9.6 8.5-10.1 MG/DL Corrected Calcium 9.7 8.5-10.1 MG/DL Magnesium Level 2.8 H 1.8-2.4 MG/DL Total Bilirubin 1.3 H 0.1-1.0 MG/DL Aspartate Amino Transf (AST/SGOT) 63 H 5-34 U/L Alanine Aminotransferase (ALT/SGPT) 207 H 0-55 U/L Alkaline Phosphatase 214 H 40-136 U/L Total Protein 7.7 6.4-8.2 GM/DL Albumin 3.9 3.2-4.5 GM/DL Amylase Level 20 L 25-125 U/L Lipase 14 8-78 U/L Blood Gas Puncture Site RIGHT RADIAL Blood Gas Patient Temperature 98.9 Arterial Blood pH 7.18 *L 7.37-7.43 Arterial Blood Partial Pressure CO2 25 L 35-45 MMHG Arterial Blood Partial Pressure O2 122 H 79-93 MMHG Arterial Blood HCO3 9 *L 23-27 MMOL/L Arterial Blood Total CO2 9.6 L 21.0-31.0 MMOL/L Arterial Blood Oxygen Saturation 99 94-100 % Arterial Blood Base Excess -18.0 L -2.5-2.5 MMOL/L [place] Test POSITIVE Blood Gas Ventilator Setting NO Blood Gas Inspired Oxygen ROOM AIR Test 11/29/17 16:40 11/29/17 17:30 11/29/17 17:31 11/29/17 19:05 Range/Units Urine Color YELLOW Urine Clarity CLEAR Urine pH 5 5-9 Urine Specific [place] 1.015 L 1.016-1.022 Urine Protein 2+ H NEGATIVE Urine Glucose (UA) 4+ H NEGATIVE Urine Ketones 4+ H NEGATIVE Urine Nitrite NEGATIVE NEGATIVE Urine Bilirubin NEGATIVE NEGATIVE Urine Urobilinogen NORMAL NORMAL MG/DL Urine Leukocyte Esterase NEGATIVE NEGATIVE Urine RBC (Auto) 1+ H NEGATIVE Urine RBC NONE /HPF Urine WBC NONE /HPF Urine Squamous Epithelial Cells NONE /HPF Urine Crystals NONE /LPF Urine Bacteria NEGATIVE /HPF Urine Casts NONE /LPF Urine Mucus NEGATIVE /LPF Urine Culture Indicated NO Urine Opiates Screen NEGATIVE NEGATIVE Urine Oxycodone Screen NEGATIVE NEGATIVE Urine Methadone Screen NEGATIVE NEGATIVE Urine Propoxyphene Screen NEGATIVE NEGATIVE Urine Barbiturates Screen NEGATIVE NEGATIVE Ur Tricyclic Antidepressants Screen NEGATIVE NEGATIVE Urine Phencyclidine Screen NEGATIVE NEGATIVE Urine Amphetamines Screen POSITIVE H NEGATIVE Urine Methamphetamines Screen POSITIVE H NEGATIVE Urine Benzodiazepines Screen NEGATIVE NEGATIVE Urine Cocaine Screen NEGATIVE NEGATIVE Urine Cannabinoids Screen NEGATIVE NEGATIVE White Blood Count 11.9 H 4.3-11.0 10^3/uL Red Blood Count 3.82 L 4.35-5.85 10^6/uL Hemoglobin 12.6 L 13.3-17.7 G/DL Hematocrit 33 L 40-54 % Mean Corpuscular Volume 86 80-99 FL Mean Corpuscular Hemoglobin 33 25-34 PG Mean Corpuscular Hemoglobin Concent 39 H 32-36 G/DL Red Cell Distribution Width 12.5 10.0-14.5 % Platelet Count 358 130-400 10^3/uL Mean Platelet Volume 8.9 7.4-10.4 FL Sodium Level 133 L 132 L 135-145 MMOL/L Potassium Level 5.1 H 4.5 3.6-5.0 MMOL/L Chloride Level 101 102 98-107 MMOL/L Carbon Dioxide Level 10 L 9 *L 21-32 MMOL/L Anion Gap 22 H 21 H 5-14 MMOL/L Blood Urea Nitrogen 19 H 19 H 7-18 MG/DL Creatinine 1.17 1.28 0.60-1.30 MG/DL Estimat Glomerular Filtration Rate > 60 > 60 BUN/Creatinine Ratio 16 15 Glucose Level 532 *H 475 *H 70-105 MG/DL Calcium Level 8.5 7.9 L 8.5-10.1 MG/DL Troponin I < 0.30 <0.30 NG/ML Glucometer 502 *H 70-110 MG/DL Test 11/29/17 19:30 11/29/17 20:34 11/29/17 21:32 11/29/17 22:31 Range/Units Glucometer 396 H 271 H 251 H 181 H 70-110 MG/DL Test 11/29/17 22:55 Range/Units My Orders Orders - GUANAKO TORRE Comprehensive Metabolic Panel (11/29/17 14:13) Lipase (11/29/17 14:13) Amylase (11/29/17 14:13) Ua Culture If Indicated (11/29/17 14:13) Saline Lock/Iv-Start (11/29/17 14:13) Cbc With Automated Diff (11/29/17 14:13) Magnesium (11/29/17 14:13) Ondansetron Injection (Zofran Injectio (11/29/17 14:15) Ns Iv 1000 Ml (Sodium Chloride 0.9%) (11/29/17 14:15) Insulin (Regular) Human (Humulin R (Per (11/29/17 14:15) Drug Screen Stat (Urine) (11/29/17 14:37) Arterial Blood Gas (11/29/17 15:15) Saline Lock/Iv-Start (11/29/17 15:29) Ns Iv 1000 Ml (Sodium Chloride 0.9%) (11/29/17 15:29) Accucheck Stat ONCE (11/29/17 15:29) Arterial Blood Draw (11/29/17 ) Medications Given in ED Current Medications Medications Dose Ordered Sig/Lety Route Start Time Stop Time Status Last Admin Dose Admin Insulin Human Regular 10 unit ONCE ONCE IV 11/29/17 14:15 10/15/18 14:20 DC 11/29/17 14:41 10 UNIT Ondansetron HCl 8 mg ONCE ONCE IVP 11/29/17 14:15 11/29/17 14:20 DC 11/29/17 14:41 8 MG Sodium Chloride 1,000 ml @ 0 mls/hr Q0M ONCE IV 11/29/17 15:29 11/29/17 15:32 DC 11/29/17 16:35 1,000 MLS/HR Vital Signs/I&O 11/29/17 11/29/17 11/29/17 11/29/17 14:00 16:52 17:03 17:09 Temp 98.0 Pulse 118 105 105 Resp 23 20 B/P (MAP) 134/87 (103) 123/66 (85) Pulse Ox 100 97 98 O2 Delivery Room Air Room Air Room Air 11/29/17 11/29/17 11/29/17 11/29/17 17:15 18:00 19:00 19:00 Pulse 106 112 112 112 Resp 15 13 19 B/P (MAP) 121/65 (83) 124/78 (93) 105/60 (75) Pulse Ox 97 98 98 O2 Delivery Room Air Room Air Room Air 11/29/17 11/29/17 11/29/17 11/29/17 20:00 20:00 21:00 22:00 Pulse 102 93 93 Resp 15 12 18 B/P (MAP) 103/63 (76) 102/59 (73) 104/64 (77) Pulse Ox 99 98 98 99 O2 Delivery Room Air Room Air Room Air Room Air Capillary Refill : Progress Note : Time: 15:35 Progress Note I have seen and evaluated the patient. His nausea has improved. I spoke to Dr. Enrique at this time and she agrees with plans for admission. Use of the DKA orders set. Patient agrees with plans for admission. Voiced is no questions or concerns. Departure Communication (Admissions) Time/Spoke to Admitting Phy: 15:35 Dr. Enrique Impression Primary Impression: Diabetic ketoacidosis Disposition: ADMITTED INPATIENT Condition: Stable/Unchanged Admissions Decision to Admit Reason: Admit from ER (General) Decision to Admit/Date: Nov 29, 2017 Time/Decision to Admit Time: 15:35 Departure-Patient Inst. Referrals: [facility]) Primary Care Physician GUANAKO TORRE Nov 29, 2017 14:57
[2017-11-29 15:28] LABS: ABG OXYGEN SATURATION 99 % (94-100); ABG PCO2 25 MMHG (35-45); ABG PO2 122 MMHG (79-93); ABG TCO2 9.6 MMOL/L (21.0-31.0)
[2017-11-29 15:29] LABS: ABG PH 7.18 (7.37-7.43)
[2017-11-29] MEDS ORDERED: NS IV 1000 ML 1,000 ML IV ONE (15:29)
[2017-11-29 15:30] LABS: ALLENS TEST POSITIVE; INSPIRED O2 ROOM AIR; PATIENT TEMP 98.9; VENTILATOR NO
[2017-11-29 16:47] LABS: BILIRUBIN,URINE NEGATIVE (NEGATIVE); CLARITY,URINE CLEAR; COLOR,URINE YELLOW; GLUCOSE, URINE (UA) 4+ (NEGATIVE); KETONES,URINE 4+ (NEGATIVE); LEUKOCYTE ESTERASE ,URINE NEGATIVE (NEGATIVE); NITRITE,URINE NEGATIVE (NEGATIVE); PH,URINE 5 (5-9); PROTEIN,URINE 2+ (NEGATIVE); UROBILINOGEN,URINE NORMAL (NORMAL)
[2017-11-29 16:53] LABS: BACTERIA,URINE NEGATIVE /HPF
[2017-11-29 16:59] LABS: AMPHETAMINE SCREEN, URINE POSITIVE (NEGATIVE); BARBITURATE SCREEN URINE NEGATIVE (NEGATIVE); BENZODIAZEPINES SCREEN URINE NEGATIVE (NEGATIVE); CANNABINOID SCREEN, URINE NEGATIVE (NEGATIVE); COCAINE SCREEN URINE NEGATIVE (NEGATIVE); METHADONE STAT NEGATIVE (NEGATIVE); METHAMPHETAMINE SCREEN URINE S POSITIVE (NEGATIVE); OPIATE SCREEN URINE NEGATIVE (NEGATIVE); OXYCODONE STAT NEGATIVE (NEGATIVE); PROPOXYPHENE STAT NEGATIVE (NEGATIVE); TRICYCLIC ANTIDEPRESSANTS SCRE NEGATIVE (NEGATIVE)
[2017-11-29] MEDS ORDERED: 1/2 NS IV SCH (17:29)
[2017-11-29] MEDS ORDERED: ONDANSETRON 4 MG/2 ML (SDV) Z0FRAN IV PRN (17:30)
[2017-11-29 17:38] LABS: HEMOGLOBIN 12.6 G/DL (13.3-17.7); MEAN PLATELET VOLUME 8.9 FL (7.4-10.4); RED BLOOD COUNT 3.82 10^6/uL (4.35-5.85); RED CELL DISTRIBUTION WIDTH 12.5 % (10.0-14.5); WHITE BLOOD COUNT 11.9 10^3/uL (4.3-11.0)
[2017-11-29] MEDS: POTASSIUM CL 10MEQ/50ML IVPB 50 ML IV SCH ×5 (17:40→23:12)
[2017-11-29] MEDS ORDERED: ACETAMINOPHEN 500 MG TAB (TYLENOL) ONE (17:43)
[2017-11-29] MEDS ORDERED: KETOROLAC 30 MG/ML VIAL ONE (17:43)
[2017-11-29] MEDS ORDERED: inSUlin REGULAR TPN/DRIP ONLY 250 UNITS in NORMAL SALINE 250 ML IV SCH (17:45)
[2017-11-29] MEDS: ACETAMINOPHEN 500 MG TAB (TYLENOL) PO PRN (17:51)
[2017-11-29] MEDS: 1/2 NS IV SOLUTION 1,000 ML IV SCH ×2 (17:51→22:01)
[2017-11-29] MEDS: KETOROLAC 30 MG/ML VIAL IVP PRN (17:51)
[2017-11-29 17:54] LABS: BUN/CREATININE RATIO 16; CALCIUM 8.5 MG/DL (8.5-10.1); CARBON DIOXIDE 10 MMOL/L (21-32); CHLORIDE 101 MMOL/L (98-107); CREATININE SERUM 1.17 MG/DL (0.60-1.30); GFR ESTIMATED > 60; POTASSIUM 5.1 MMOL/L (3.6-5.0); SODIUM 133 MMOL/L (135-145)
[2017-11-29 17:56] LABS: GLUCOSE 532 MG/DL (70-105)
[2017-11-29] MEDS: PANTOPRAZOLE 40 MG (PROTONIX) VIAL IV SCH (18:39)
[2017-11-29 19:32] LABS: BUN/CREATININE RATIO 15; CALCIUM 7.9 MG/DL (8.5-10.1); CHLORIDE 102 MMOL/L (98-107); CREATININE SERUM 1.28 MG/DL (0.60-1.30); GFR ESTIMATED > 60; POTASSIUM 4.5 MMOL/L (3.6-5.0); SODIUM 132 MMOL/L (135-145)
[2017-11-29 19:38] LABS: CARBON DIOXIDE 9 MMOL/L (21-32)
[2017-11-29 19:39] LABS: GLUCOSE 475 MG/DL (70-105)
[2017-11-29] MEDS ORDERED: FLU QUADRIvalent (5+ YOA) 2018-2019 (AFLURIA) 0.5 ML IM ONE (20:30)
[2017-11-29] MEDS: D5 1/2 NS 1000 ML IV SOLUTION 1,000 ML IV SCH (22:35)
[2017-11-29 23:39] LABS: BUN/CREATININE RATIO 15; CALCIUM 8.1 MG/DL (8.5-10.1); CARBON DIOXIDE 16 MMOL/L (21-32); CHLORIDE 105 MMOL/L (98-107); CREATININE SERUM 1.18 MG/DL (0.60-1.30); GFR ESTIMATED > 60; GLUCOSE 168 MG/DL (70-105); POTASSIUM 4.4 MMOL/L (3.6-5.0); SODIUM 134 MMOL/L (135-145)
[2017-11-30] VITALS (13 sets, daily range): BP systolic 92–136; BP diastolic 57–76
[2017-11-30] MEDS: KETOROLAC 30 MG/ML VIAL IVP PRN ×2 (00:33→09:54)
[2017-11-30] MEDS: POTASSIUM CL 10MEQ/50ML IVPB 50 ML IV SCH ×4 (01:10→08:38)
[2017-11-30] MEDS: 1/2 NS IV SOLUTION 1,000 ML IV SCH ×2 (01:52→06:19)
[2017-11-30] MEDS: D5 1/2 NS 1000 ML IV SOLUTION 1,000 ML IV SCH ×2 (03:10→06:14)
[2017-11-30] MEDS: ACETAMINOPHEN 500 MG TAB (TYLENOL) PO PRN ×3 (03:12→20:07)
[2017-11-30 03:33] LABS: BASOPHILS # (AUTO) 0.1 10^3/uL (0.0-0.1); BASOPHILS % (AUTO) 1 % (0-10); EOSINOPHILS # (AUTO) 0.2 10^3/uL (0.0-0.3); EOSINOPHILS % (AUTO) 2 % (0-10); HEMATOCRIT 32 % (40-54); HEMOGLOBIN 11.4 G/DL (13.3-17.7); LYMPHOCYTES # (AUTO) 2.3 X 10^3 (1.0-4.0); LYMPHOCYTES % (AUTO) 27 % (12-44); MEAN CORPUSCULAR HEMOGLOBIN 32 PG (25-34); MEAN CORPUSCULAR HGB CONC 36 G/DL (32-36); MEAN CORPUSCULAR VOLUME 90 FL (80-99); MEAN PLATELET VOLUME 8.9 FL (7.4-10.4); MONOCYTES # (AUTO) 0.9 X 10^3 (0.0-1.0); MONOCYTES % (AUTO) 11 % (0-12); NEUTROPHILS # (AUTO) 5.1 X 10^3 (1.8-7.8); NEUTROPHILS % (AUTO) 60 % (42-75); PLATELET COUNT 348 10^3/uL (130-400); RED BLOOD COUNT 3.55 10^6/uL (4.35-5.85); RED CELL DISTRIBUTION WIDTH 12.4 % (10.0-14.5); WHITE BLOOD COUNT 8.5 10^3/uL (4.3-11.0)
[2017-11-30 04:00] LABS: ALANINE AMINOTRANSFERASE 134 U/L (0-55); ALKALINE PHOSPHATASE 146 U/L (40-136); BILIRUBIN,TOTAL 0.4 MG/DL (0.1-1.0); BUN/CREATININE RATIO 15; CARBON DIOXIDE 20 MMOL/L (21-32); CHLORIDE 107 MMOL/L (98-107); CREATININE SERUM 1.06 MG/DL (0.60-1.30); GFR ESTIMATED > 60; GLUCOSE 144 MG/DL (70-105); POTASSIUM 3.9 MMOL/L (3.6-5.0); SODIUM 135 MMOL/L (135-145); TOTAL PROTEIN 5.3 GM/DL (6.4-8.2)
[2017-11-30] MEDS ORDERED: MAGNESIUM 1 GM/100 ML IVPB 100 ML IV SCH (06:00)
[2017-11-30] MEDS ORDERED: POTASSIUM CL 10MEQ/50ML IVPB 50 ML IV SCH (06:00)
[2017-11-30] MEDS ORDERED: KCL 20 MEQ TAB (K-DUR) PO SCH (06:00)
--- NOTE | 2017-11-30 07:07 | History & Physicial ([facility]S) ---
HPI History of Present Illness: Pt is a 37 yo M w/ a hx of type 1 DM who presented to the ED yesterday complaining of worsening nausea and vomiting and elevated blood sugar. He states he ran out of his insulin 3 days ago. He states he takes a long acting and short acting insulin. Records show that the pt was admitted for DKA on . He denies fevers/chills, CP, SOB, hematemesis, diarrhea, recent sick contacts. Source: patient, RN/MD Date seen by provider: Nov 30, 2017 Time Seen by Provider: 08:14 Attending Physician Carola Enrique MD PCP Center[place] [place] Consult Date of Admission Nov 29, 2017 at 15:35 Home Medications Home Medications Reviewed patient Home Medication Reconciliation performed by pharmacy medication reconciliations equipment service technician and/or nursing. Patients Allergies have been reviewed. Allergies Coded Allergies: No Known Drug Allergies (Unverified , 10/29/17) UTD-Wqkucx-Uqlazo Hx Patient Social History Alcohol Use: Denies Use Recreational Drug Use: Yes Drug of Choice: meth Smoking Status: Current Everyday Smoker Type Used: Cigarettes Recent Foreign Travel: No Contact w/other who traveled: No Recent Hopitalizations: No (MRSA in right knee) Recent Infectious Disease Expo: No Physical Abuse Screen: No Sexual Abuse: No Past Medical History DM Type 1 - Dx 1988 (age 7) Diabetic Retinopathy Diabetic Neuropathy reports heart murmur Meth use hx MRSA Migraine SALEH PSH: R elbow fracture repair R elbow MRSA R knee surgeries x9 (2 arthroscopic, other surgies for MRSA) Review of Systems ([facility]) Constitutional: No chills, No diaphoresis, No fever, No weight loss EENTM: No dental problems, No mouth swelling Respiratory: No cough, No short of breath Cardiovascular: No chest pain, No edema Gastrointestinal: abdominal pain; No diarrhea, No hematemesis; nausea, vomiting Genitourinary: No discharge, No dysuria; frequency Musculoskeletal: No joint swelling, No muscle pain Skin: No dryness, No rash Psychiatric/Neurological: Denies Headache, Denies Paresthesia, Denies Seizure Reviewed Test Results Reviewed Test Results Lab Laboratory Tests Test 11/29/17 14:11 11/29/17 14:12 11/29/17 15:20 11/29/17 16:39 Range/Units Glucometer > 600 *H 443 *H 70-110 MG/DL White Blood Count 12.7 H 4.3-11.0 10^3/uL Red Blood Count 4.27 L 4.35-5.85 10^6/uL Hemoglobin 13.9 13.3-17.7 G/DL Hematocrit 38 L 40-54 % Mean Corpuscular Volume 90 80-99 FL Mean Corpuscular Hemoglobin 33 25-34 PG Mean Corpuscular Hemoglobin Concent 36 32-36 G/DL Red Cell Distribution Width 12.3 10.0-14.5 % Platelet Count 465 H 130-400 10^3/uL Mean Platelet Volume 9.6 7.4-10.4 FL Neutrophils (%) (Auto) 80 H 42-75 % Lymphocytes (%) (Auto) 11 L 12-44 % Monocytes (%) (Auto) 8 0-12 % Eosinophils (%) (Auto) 0 0-10 % Basophils (%) (Auto) 1 0-10 % Neutrophils # (Auto) 10.1 H 1.8-7.8 X 10^3 Lymphocytes # (Auto) 1.5 1.0-4.0 X 10^3 Monocytes # (Auto) 1.0 0.0-1.0 X 10^3 Eosinophils # (Auto) 0.0 0.0-0.3 10^3/uL Basophils # (Auto) 0.1 0.0-0.1 10^3/uL Sodium Level 130 L 135-145 MMOL/L Potassium Level 6.0 H 3.6-5.0 MMOL/L Chloride Level 92 L 98-107 MMOL/L Carbon Dioxide Level 9 *L 21-32 MMOL/L Anion Gap 29 H 5-14 MMOL/L Blood Urea Nitrogen 19 H 7-18 MG/DL Creatinine 1.50 H 0.60-1.30 MG/DL Estimat Glomerular Filtration Rate 52 BUN/Creatinine Ratio 13 Glucose Level 776 *H 70-105 MG/DL Calcium Level 9.6 8.5-10.1 MG/DL Corrected Calcium 9.7 8.5-10.1 MG/DL Magnesium Level 2.8 H 1.8-2.4 MG/DL Total Bilirubin 1.3 H 0.1-1.0 MG/DL Aspartate Amino Transf (AST/SGOT) 63 H 5-34 U/L Alanine Aminotransferase (ALT/SGPT) 207 H 0-55 U/L Alkaline Phosphatase 214 H 40-136 U/L Total Protein 7.7 6.4-8.2 GM/DL Albumin 3.9 3.2-4.5 GM/DL Amylase Level 20 L 25-125 U/L Lipase 14 8-78 U/L Blood Gas Puncture Site RIGHT RADIAL Blood Gas Patient Temperature 98.9 Arterial Blood pH 7.18 *L 7.37-7.43 Arterial Blood Partial Pressure CO2 25 L 35-45 MMHG Arterial Blood Partial Pressure O2 122 H 79-93 MMHG Arterial Blood HCO3 9 *L 23-27 MMOL/L Arterial Blood Total CO2 9.6 L 21.0-31.0 MMOL/L Arterial Blood Oxygen Saturation 99 94-100 % Arterial Blood Base Excess -18.0 L -2.5-2.5 MMOL/L [place] Test POSITIVE Blood Gas Ventilator Setting NO Blood Gas Inspired Oxygen ROOM AIR Test 11/29/17 16:40 11/29/17 17:30 11/29/17 17:31 11/29/17 19:05 Range/Units Urine Color YELLOW Urine Clarity CLEAR Urine pH 5 5-9 Urine Specific [place] 1.015 L 1.016-1.022 Urine Protein 2+ H NEGATIVE Urine Glucose (UA) 4+ H NEGATIVE Urine Ketones 4+ H NEGATIVE Urine Nitrite NEGATIVE NEGATIVE Urine Bilirubin NEGATIVE NEGATIVE Urine Urobilinogen NORMAL NORMAL MG/DL Urine Leukocyte Esterase NEGATIVE NEGATIVE Urine RBC (Auto) 1+ H NEGATIVE Urine RBC NONE /HPF Urine WBC NONE /HPF Urine Squamous Epithelial Cells NONE /HPF Urine Crystals NONE /LPF Urine Bacteria NEGATIVE /HPF Urine Casts NONE /LPF Urine Mucus NEGATIVE /LPF Urine Culture Indicated NO Urine Opiates Screen NEGATIVE NEGATIVE Urine Oxycodone Screen NEGATIVE NEGATIVE Urine Methadone Screen NEGATIVE NEGATIVE Urine Propoxyphene Screen NEGATIVE NEGATIVE Urine Barbiturates Screen NEGATIVE NEGATIVE Ur Tricyclic Antidepressants Screen NEGATIVE NEGATIVE Urine Phencyclidine Screen NEGATIVE NEGATIVE Urine Amphetamines Screen POSITIVE H NEGATIVE Urine Methamphetamines Screen POSITIVE H NEGATIVE Urine Benzodiazepines Screen NEGATIVE NEGATIVE Urine Cocaine Screen NEGATIVE NEGATIVE Urine Cannabinoids Screen NEGATIVE NEGATIVE White Blood Count 11.9 H 4.3-11.0 10^3/uL Red Blood Count 3.82 L 4.35-5.85 10^6/uL Hemoglobin 12.6 L 13.3-17.7 G/DL Hematocrit 33 L 40-54 % Mean Corpuscular Volume 86 80-99 FL Mean Corpuscular Hemoglobin 33 25-34 PG Mean Corpuscular Hemoglobin Concent 39 H 32-36 G/DL Red Cell Distribution Width 12.5 10.0-14.5 % Platelet Count 358 130-400 10^3/uL Mean Platelet Volume 8.9 7.4-10.4 FL Sodium Level 133 L 132 L 135-145 MMOL/L Potassium Level 5.1 H 4.5 3.6-5.0 MMOL/L Chloride Level 101 102 98-107 MMOL/L Carbon Dioxide Level 10 L 9 *L 21-32 MMOL/L Anion Gap 22 H 21 H 5-14 MMOL/L Blood Urea Nitrogen 19 H 19 H 7-18 MG/DL Creatinine 1.17 1.28 0.60-1.30 MG/DL Estimat Glomerular Filtration Rate > 60 > 60 BUN/Creatinine Ratio 16 15 Glucose Level 532 *H 475 *H 70-105 MG/DL Calcium Level 8.5 7.9 L 8.5-10.1 MG/DL Troponin I < 0.30 <0.30 NG/ML Glucometer 502 *H 70-110 MG/DL Test 11/29/17 19:30 11/29/17 20:34 11/29/17 21:32 11/29/17 22:31 Range/Units Glucometer 396 H 271 H 251 H 181 H 70-110 MG/DL Test 11/29/17 22:55 11/29/17 23:34 11/30/17 00:32 11/30/17 01:29 Range/Units Sodium Level 134 L 135-145 MMOL/L Potassium Level 4.4 3.6-5.0 MMOL/L Chloride Level 105 98-107 MMOL/L Carbon Dioxide Level 16 L 21-32 MMOL/L Anion Gap 13 5-14 MMOL/L Blood Urea Nitrogen 18 7-18 MG/DL Creatinine 1.18 0.60-1.30 MG/DL Estimat Glomerular Filtration Rate > 60 BUN/Creatinine Ratio 15 Glucose Level 168 H 70-105 MG/DL Calcium Level 8.1 L 8.5-10.1 MG/DL Troponin I < 0.30 <0.30 NG/ML Glucometer 175 H 169 H 174 H 70-110 MG/DL Test 11/30/17 02:37 11/30/17 03:05 11/30/17 03:32 11/30/17 04:42 Range/Units Glucometer 146 H 140 H 159 H 70-110 MG/DL White Blood Count 8.5 4.3-11.0 10^3/uL Red Blood Count 3.55 L 4.35-5.85 10^6/uL Hemoglobin 11.4 L 13.3-17.7 G/DL Hematocrit 32 L 40-54 % Mean Corpuscular Volume 90 80-99 FL Mean Corpuscular Hemoglobin 32 25-34 PG Mean Corpuscular Hemoglobin Concent 36 32-36 G/DL Red Cell Distribution Width 12.4 10.0-14.5 % Platelet Count 348 130-400 10^3/uL Mean Platelet Volume 8.9 7.4-10.4 FL Neutrophils (%) (Auto) 60 42-75 % Lymphocytes (%) (Auto) 27 12-44 % Monocytes (%) (Auto) 11 0-12 % Eosinophils (%) (Auto) 2 0-10 % Basophils (%) (Auto) 1 0-10 % Neutrophils # (Auto) 5.1 1.8-7.8 X 10^3 Lymphocytes # (Auto) 2.3 1.0-4.0 X 10^3 Monocytes # (Auto) 0.9 0.0-1.0 X 10^3 Eosinophils # (Auto) 0.2 0.0-0.3 10^3/uL Basophils # (Auto) 0.1 0.0-0.1 10^3/uL Sodium Level 135 135-145 MMOL/L Potassium Level 3.9 3.6-5.0 MMOL/L Chloride Level 107 98-107 MMOL/L Carbon Dioxide Level 20 L 21-32 MMOL/L Anion Gap 8 5-14 MMOL/L Blood Urea Nitrogen 16 7-18 MG/DL Creatinine 1.06 0.60-1.30 MG/DL Estimat Glomerular Filtration Rate > 60 BUN/Creatinine Ratio 15 Glucose Level 144 H 70-105 MG/DL Calcium Level 8.0 L 8.5-10.1 MG/DL Corrected Calcium 8.8 8.5-10.1 MG/DL Magnesium Level 2.0 1.8-2.4 MG/DL Total Bilirubin 0.4 0.1-1.0 MG/DL Aspartate Amino Transf (AST/SGOT) 30 5-34 U/L Alanine Aminotransferase (ALT/SGPT) 134 H 0-55 U/L Alkaline Phosphatase 146 H 40-136 U/L Total Protein 5.3 L 6.4-8.2 GM/DL Albumin 3.0 L 3.2-4.5 GM/DL Test 11/30/17 05:34 11/30/17 06:27 Range/Units Glucometer 202 H 209 H 70-110 MG/DL Physical Exam-([facility]) Physical Exam Vital Signs VS - Last 72 Hours, by Label 11/29/17 11/29/17 11/29/17 11/29/17 14:00 16:52 17:03 17:09 Temp 98.0 Pulse 118 105 105 Resp 23 20 B/P (MAP) 134/87 (103) 123/66 (85) Pulse Ox 100 97 98 O2 Delivery Room Air Room Air Room Air 11/29/17 11/29/17 11/29/17 11/29/17 17:15 18:00 19:00 19:00 Pulse 106 112 112 112 Resp 15 13 19 B/P (MAP) 121/65 (83) 124/78 (93) 105/60 (75) Pulse Ox 97 98 98 O2 Delivery Room Air Room Air Room Air 11/29/17 11/29/17 11/29/17 11/29/17 20:00 20:00 20:00 21:00 Temp 97.6 Pulse 102 93 Resp 15 12 B/P (MAP) 103/63 (76) 102/59 (73) Pulse Ox 99 98 98 O2 Delivery Room Air Room Air Room Air 11/29/17 11/29/17 11/30/17 11/30/17 22:00 23:00 00:00 00:00 Pulse 93 89 92 Resp 18 16 16 B/P (MAP) 104/64 (77) 106/71 (83) 107/59 (75) Pulse Ox 99 99 98 99 O2 Delivery Room Air Room Air Room Air Room Air 11/30/17 11/30/17 11/30/17 11/30/17 00:00 01:00 01:00 02:00 Temp 97.1 Pulse 87 87 82 Resp 12 12 B/P (MAP) 106/60 (75) 105/63 (77) Pulse Ox 98 99 O2 Delivery Room Air Room Air 11/30/17 11/30/17 11/30/17 11/30/17 03:00 04:00 04:00 04:00 Temp 97.3 Pulse 79 79 Resp 12 24 B/P (MAP) 92/57 (69) 96/66 (76) Pulse Ox 98 99 97 O2 Delivery Room Air Room Air Room Air 11/30/17 11/30/17 11/30/17 11/30/17 05:00 06:00 07:00 07:00 Pulse 82 78 75 75 Resp 15 12 12 B/P (MAP) 108/67 (81) 108/72 (84) 95/67 (76) Pulse Ox 99 98 99 O2 Delivery Room Air Room Air Room Air 11/30/17 11/30/17 11/30/17 11/30/17 08:00 08:37 08:37 09:00 Temp 97.6 Pulse 76 75 Resp 11 13 B/P (MAP) 113/72 (86) 118/72 (87) Pulse Ox 99 97 100 O2 Delivery Room Air Room Air Room Air Room Air 11/30/17 11/30/17 11/30/17 11/30/17 10:00 11:00 12:00 12:38 Pulse 79 81 91 Resp 15 11 12 B/P (MAP) Pulse Ox 99 98 98 97 O2 Delivery Room Air Room Air Room Air Room Air 11/30/17 11/30/17 11/30/17 11/30/17 12:38 13:00 13:00 14:00 Temp 98.0 Pulse 84 89 85 Resp 30 13 B/P (MAP) 116/71 (86) Pulse Ox 99 99 O2 Delivery Room Air Room Air Room Air 11/30/17 11/30/17 11/30/17 11/30/17 14:20 16:50 19:55 21:00 Temp 96.9 97.0 Pulse 54 83 Resp 12 18 B/P (MAP) 124/69 (87) 136/76 (96) Pulse Ox 99 99 O2 Delivery Room Air Room Air Room Air Room Air 12/01/17 12/01/17 12/01/17 12/01/17 00:46 00:50 04:00 07:37 Temp 96.1 98.0 98.0 96.0 Pulse 83 79 73 Resp 16 20 20 B/P (MAP) 139/73 (95) 143/79 (100) 139/84 (102) Pulse Ox 97 97 98 O2 Delivery Room Air Room Air Room Air Capillary Refill : Less Than 3 Seconds General Appearance: WD/WN, no apparent distress Eyes: Bilateral Eye Normal Inspection HEENT: pharynx normal; No pale conjunctivae (R), No pale conjunctivae (L) Neck: non-tender, full range of motion, supple, normal inspection Respiratory: chest non-tender, lungs clear, normal breath sounds, no respiratory distress, no accessory muscle use Cardiovascular: regular rate, rhythm, no edema, no murmur Gastrointestinal: normal bowel sounds, non tender, soft, no organomegaly Back: normal inspection, no vertebral tenderness Extremities: normal range of motion, non-tender, normal inspection, no pedal edema, no calf tenderness, normal capillary refill Neurologic/Psychiatric: outbound supervisor II-XII nml as tested, no motor/sensory deficits, alert, normal mood/affect, oriented x 3 Skin: normal color, warm/dry Lymphatic: no adenopathy Assessment/Plan Assessment/Plan Admission Status: Inpatient Order (span 2 midnights) Reason for Inpatient Admission: DKA (1) Diabetic ketoacidosis Status: Acute Assessment & Plan: Pt to ED w/ sugar initially >600 Pt now in ICU on DKA protocol w/ sliding insulin, IVF, and Potassium replacement Sugars have trended down to Also treating symptoms w/ Zofran, Toradol, Acetaminophen as needed White count and platelets were initially elevated, these have returned to WNL ALT and Alk phos were initially elevated but have trended down, likely due to dehydration Urine tox screen positive for amphetamines/meth Qualifiers: Clinical Quality Measures DVT/VTE Risk/Contraindication: Risk Factor Score Per Nursin RFS Level Per Nursing on Admit: 2=Moderate AKHIL ZIMMERMAN MEDICAL STUDENT Nov 30, 2017 07:07
[2017-11-30 07:39] LABS: BUN/CREATININE RATIO 14; CALCIUM 7.9 MG/DL (8.5-10.1); CARBON DIOXIDE 17 MMOL/L (21-32); CHLORIDE 109 MMOL/L (98-107); CREATININE SERUM 1.08 MG/DL (0.60-1.30); GFR ESTIMATED > 60; GLUCOSE 186 MG/DL (70-105); POTASSIUM 4.3 MMOL/L (3.6-5.0); SODIUM 135 MMOL/L (135-145)
[2017-11-30] MEDS ORDERED: inSUlin DETERMIR 1 UNIT/0.01 ML (LEVEMIR) CHARGE PER UNIT SQ NR (08:00)
[2017-11-30] MEDS: PANTOPRAZOLE 40 MG (PROTONIX) VIAL IV SCH ×2 (08:37→20:06)
[2017-11-30] MEDS ORDERED: RANI-515 PO (10:17)
[2017-11-30] MEDS ORDERED: INSU100I14 SQ (10:17)
[2017-11-30] MEDS ORDERED: ACET-2267 PO (10:17)
[2017-11-30] MEDS ORDERED: IBUP-30 PO (10:17)
[2017-11-30] MEDS ORDERED: PROM25TA14 PO (10:17)
[2017-11-30] MEDS ORDERED: INSU100I10 SQ ×2 (10:17)
[2017-11-30] MEDS ORDERED: GABA-486 PO (10:17)
[2017-11-30] MEDS ORDERED: inSUlin ASPART (NovoLOG) 1 UNIT/0.01 ML (CHARGE PER UNIT) SC SCH (11:00)
[2017-11-30] MEDS: NS IV 1000 ML 1,000 ML IV SCH ×2 (12:32→20:06)
[2017-11-30 13:14] LABS: BUN/CREATININE RATIO 14; CALCIUM 8.1 MG/DL (8.5-10.1); CARBON DIOXIDE 20 MMOL/L (21-32); CHLORIDE 106 MMOL/L (98-107); CREATININE SERUM 1.03 MG/DL (0.60-1.30); GFR ESTIMATED > 60; GLUCOSE 314 MG/DL (70-105); POTASSIUM 4.7 MMOL/L (3.6-5.0); SODIUM 132 MMOL/L (135-145)
[2017-11-30] MEDS ORDERED: FLU QUADRIvalent (5+ YOA) 2018-2019 (AFLURIA) 0.5 ML IM ONE (15:02)
[2017-11-30] MEDS: inSUlin ASPART (NovoLOG) 1 UNIT/0.01 ML (CHARGE PER UNIT) SC SCH ×2 (17:01→21:09)
[2017-11-30] MEDS ORDERED: inSUlin DETERMIR 1 UNIT/0.01 ML (LEVEMIR) CHARGE PER UNIT SQ SCH (21:00)
[2017-11-30] MEDS: inSUlin DETERMIR 1 UNIT/0.01 ML (LEVEMIR) CHARGE PER UNIT SQ SCH (21:16)
[2017-11-30] MEDS: CHLORASEPTIC SPRAY 177 ML LIQUID MC PRN (23:08)
[2017-12-01 00:46] VITALS: BP 139/73
[2017-12-01] MEDS: CHLORASEPTIC SPRAY 177 ML LIQUID MC PRN ×4 (01:36→12:23)
[2017-12-01] MEDS: ACETAMINOPHEN 500 MG TAB (TYLENOL) PO PRN ×2 (03:53→12:23)
[2017-12-01 04:00] VITALS: BP 143/79
[2017-12-01] MEDS: NS IV 1000 ML 1,000 ML IV SCH ×2 (05:03→11:04)
[2017-12-01] MEDS: inSUlin ASPART (NovoLOG) 1 UNIT/0.01 ML (CHARGE PER UNIT) SC SCH ×2 (05:10→10:07)
[2017-12-01 07:37] VITALS: BP 139/84
[2017-12-01] MEDS: PANTOPRAZOLE 40 MG (PROTONIX) VIAL IV SCH (08:33)
[2017-12-01] MEDS: inSUlin DETERMIR 1 UNIT/0.01 ML (LEVEMIR) CHARGE PER UNIT SQ SCH (08:34)
[2017-12-01 10:09] LABS: BUN/CREATININE RATIO 18; CALCIUM 8.2 MG/DL (8.5-10.1); CARBON DIOXIDE 22 MMOL/L (21-32); CHLORIDE 108 MMOL/L (98-107); CREATININE SERUM 0.66 MG/DL (0.60-1.30); GFR ESTIMATED > 60; GLUCOSE 73 MG/DL (70-105); POTASSIUM 3.7 MMOL/L (3.6-5.0); SODIUM 137 MMOL/L (135-145)
--- NOTE | 2017-12-01 11:47 | Discharge Summary ---
Diagnosis/Chief Complaint Date of Admission Nov 29, 2017 at 15:35 Date of Discharge Chief Complaint/HPI Chief Complaint/HPI Pt is a 37 yo M w/ a hx of type 1 DM who presented to the ED yesterday complaining of worsening nausea and vomiting and elevated blood sugar. He states he ran out of his insulin 3 days ago. He states he takes a long acting and short acting insulin. Records show that the pt was admitted for DKA on . He denies fevers/chills, CP, SOB, hematemesis, diarrhea, recent sick contacts. Discharge Summary-Simple/Stand Consultations Discharge Physical Examination Allergies: Coded Allergies: No Known Drug Allergies (Unverified , 10/29/17) Vitals & I&Os Vital Sign - Last 12Hours Date Time Temp Pulse Resp B/P (MAP) Pulse Ox O2 Delivery O2 Flow Rate FiO2 12/01/17 07:37 96.0 73 20 139/84 (102) 98 Room Air Intake and Output 12/01/17 00:00 Intake Total 1540 ml Balance 1540 ml Hospital Course See final discharge diagnosis. Discharge Instructions to patient/family Please see electronic discharge instructions given to patient. Discharge Medications Reviewed and agree with Discharge Medication list on patient's Discharge Instruction sheet Clinical Quality Measures DVT/VTE Risk/Contraindication: Risk Factor Score Per Nursin RFS Level Per Nursing on Admit: 2=Moderate YEHUDA REED MD Dec 01, 2017 11:47
[2017-12-01] MEDS ORDERED: INSU100I14 SQ (11:49)
[2017-12-01] MEDS ORDERED: AMOX500C2 PO (11:49)
[2017-12-01] MEDS ORDERED: INSU100I10 SQ (11:49)
--- NOTE | 2017-12-01 11:59 | Discharge Instructions ---
Discharge Inst-[facility] Discharge Medications New, Converted or Re-Newed RX: Transmitted to Pharmacy New Medications: Amoxicillin (Amoxicillin) 500 Mg Capsule 500 MG PO BID for 5 Days, #10 CAP Continued Medications: Acetaminophen (Tylenol Extra Strength) 500 Mg Tablet 500 MG PO Q4H PRN for PAIN-MILD, TAB Gabapentin (Gabapentin) 100 Mg Capsule 100 MG PO TID, CAP Ibuprofen (Advil) 200 Mg Tablet 200 MG PO Q6H PRN for PAIN-MILD, TAB Insulin Aspart (Novolog Flexpen) 300 Units/3 Ml Solution 10 UNITS SQ AC, #1 EA (This prescription has been renewed) Insulin Glargine,Hum.rec.anlog (Lantus Solostar) 100 Unit/1 Ml Insuln.pen 30 UNIT SQ DAILY, #1 EA (This prescription has been renewed) Promethazine HCl (Promethazine Tablet) 25 Mg Tablet 25 MG PO Q6H PRN for NAUSEA/VOMITING-2ND LINE, TAB Ranitidine HCl (Acid Stock Hanger (RANITIDINE)) 150 Mg Tablet 150 MG PO BID, TAB Discontinued Medications: Insulin Glargine,Hum.rec.anlog (Lantus Solostar) 100 Unit/1 Ml Insuln.pen 20 UNIT SQ HS, EA Patient Instructions Goal/Follow Up Appt: You have a hospital followup appt with Chance Villarreal APRN on 12/07 @ 340 Patient Instructions: - Make sure you are taking your insulin before meals and prior to bed - It is importance to complete the whole course of antibiotics Activity & Diet Discharge Diet: ADA Diet Activity as Tolerated: Yes Orders-Post D/C & Referrals Pneu Vac Indicated: Yes Copy Copies To 1: Chance HERNANDEZ APRN, HOLLY R MD Dec 01, 2017 11:59 am
[2017-12-01] MEDS ORDERED: cefTRIAXone FOR IV USE 1,000 MG in NS (IVPB) 50 ML IV NR (13:00)
[2017-12-01 13:33] VITALS: BP 139/84
== END 2017-12-01 13:50 | disposition home or self-care (01) | DRG 639 ==
LOC: EDUNIT# 13:49 → ER 13:51 → ICU 15:35 → 4TH 11-30 14:07
PROVIDERS: ADMIT Family Medicine; ATTEND Family Medicine
DX: E10.10 Type 1 diabetes mellitus with ketoacidosis without coma (principal); E10.319 Type 1 diabetes mellitus with unspecified diabetic retinopathy without macular edema; E10.40 Type 1 diabetes mellitus with diabetic neuropathy, unspecified; E86.0 Dehydration; F17.210 Nicotine dependence, cigarettes, uncomplicated; R01.1 Cardiac murmur, unspecified; G43.909 Migraine, unspecified, not intractable, without status migrainosus; Z79.4 Long term (current) use of insulin; Z86.14 Personal history of Methicillin resistant Staphylococcus aureus infection; Z23 Encounter for immunization
CPT/HCPCS: 36415; 36600; 80048; 80053; 80306; 81000; 82150; 82805; 82962; 83036; 83690; 83735; 84484; 85025; 85027; 87081; 87430; 90686; 93005; 96361; 96374; 96375